=== PATIENT | female | born 1995 | race Caucasian/White ===

== ENCOUNTER → 2018-03-13 | Outpatient (CLI) | payer OTHER ==
--- NOTE | 2018-03-13 14:00 | XR ---
EXAMINATION TYPE: XR shoulder complete RT DATE OF EXAM: 03/13/2018 COMPARISON: NONE HISTORY: 22-year-old female anterior superior right shoulder pain after lifting injury. TECHNIQUE: 3 views FINDINGS: AC joint appears intact and congruent. Subacromial space is preserved. No delineation to the greater tuberosity. Visualized right hemithorax is clear. No acute fracture, subluxation, or dislocation. IMPRESSION: No acute osseous abnormality seen.
== END | disposition home or self-care (01) ==
LOC: RADXRYALE 13:07
PROVIDERS: ATTEND Internal Medicine
DX: M25.511 Pain in right shoulder (principal)

== ENCOUNTER 2018-08-21 20:01 | Emergency (ER) | payer OTHER ==
--- NOTE | 2018-08-21 21:05 | ED ---
General Adult HPI - General Chief complaint: Vaginal Bleeding Stated complaint: Poss miscarriage Time Seen by Provider: 08/21/18 20:25 Source: patient, RN notes reviewed Mode of arrival: ambulatory Limitations: no limitations - History of Present Illness Initial comments: 22-year-old female 5 weeks presents to the emergency department for a chief complaint of possible miscarriage. Patient states she began having lower pelvic pain and vaginal bleeding last night. She states since then she has blood through 2 pads. Patient denies pain at this time but states there is a pulsating feeling when she walks in her pelvis. Patient denies any concern for sexually transmitted diseases. She denies dizziness, shortness of breath.Patient has no other complaints at this time including shortness of breath, chest pain, nausea or vomiting, headache, or visual changes. - Related Data Home Medications Medication Instructions Recorded Confirmed Pnv,Calcium 72/Iron/Folic Acid 1 tab PO DAILY 02/09/16 08/21/18 [ Plus Tablet] Allergies Allergy/AdvReac Type Severity Reaction Status Date / Time latex Allergy Rash/Hives Verified 08/21/18 23:25 Penicillins AdvReac Nausea & Verified 08/21/18 23:25 Vomiting Review of Systems ROS Statement: Those systems with pertinent positive or pertinent negative responses have been documented in the HPI. ROS Other: All systems not noted in ROS Statement are negative. Past Medical History Past Medical History: No Reported History History of Any Multi-Drug Resistant Organisms: None Reported Past Surgical History: No Surgical Hx Reported Past Anesthesia/Blood Transfusion Reactions: No Reported Reaction Past Psychological History: ADD/ADHD, Anxiety, Depression Smoking Status: Never smoker Past Alcohol Use History: Occasional Past Drug Use History: None Reported - Past Family History Mother Family Medical History: Hypertension General Exam Limitations: no limitations General appearance: alert, in no apparent distress Head exam: Present: atraumatic, normocephalic, normal inspection Eye exam: Present: normal appearance, PERRL, EOMI. Absent: scleral icterus, conjunctival injection, periorbital swelling ENT exam: Present: normal exam, mucous membranes moist Neck exam: Present: normal inspection. Absent: tenderness, meningismus, lymphadenopathy Respiratory exam: Present: normal lung sounds bilaterally. Absent: respiratory distress, wheezes, rales, rhonchi, stridor Cardiovascular Exam: Present: regular rate, normal rhythm, normal heart sounds. Absent: systolic murmur, diastolic murmur, rubs, gallop, clicks GI/Abdominal exam: Present: soft, tenderness (Left lower quadrant and suprapubic tenderness without guarding), normal bowel sounds. Absent: distended , guarding, rebound, rigid Neurological exam: Present: alert, oriented X3, CN II-XII intact Psychiatric exam: Present: normal affect, normal mood Course Vital Signs 08/21/18 08/21/18 20:03 23:51 Temperature 98.6 F 98.9 F Pulse Rate 93 64 Respiratory 20 18 Rate Blood Pressure 125/66 119/67 O2 Sat by Pulse 99 99 Oximetry Medical Decision Making - Medical Decision Making 22-year-old female presents to the emergency department for a chief complaint of possible miscarriage. Patient states she is 5 weeks . She has had vaginal bleeding for the past 2 days as well as cramping. She is concerned she is having a miscarriage as she had a positive test at home. Patient does have cramping in the lower abdomen but states pain has since resolved. Ultrasound was ordered which showed normal uterus and endometrium. No adnexal mass or evidence of torsion. CBC and CMP unremarkable. HCG Quant came back as less than 2.4. Apparently patient must have had a false negative test and is likely on her menses at this time. I did offer to treat patient empirically for sexually transmitted diseases but she refused. She states she is not concerned for this. Urine was tested and patient is aware that this test was sent out. She will follow up with [facility] or primary care. She sees Dr. Catherine. She will return immediately to the emergency Department if she has any worsening symptoms. - Lab Data Result diagrams: 08/21/18 21:10 08/21/18 21:10 Lab Results 08/21/18 08/21/18 08/21/18 Range/Units 21:10 21:10 21:10 WBC 7.1 (3.8-10.6) k/uL RBC 4.42 (3.80-5.40) m/uL Hgb 12.2 (11.4-16.0) gm/dL Hct 38.0 (34.0-46.0) % MCV 86.1 (80.0-100.0) fL MCH 27.6 (25.0-35.0) pg MCHC 32.1 (31.0-37.0) g/dL RDW 13.8 (11.5-15.5) % Plt Count 180 (150-450) k/uL Neutrophils % 59 % Lymphocytes % 30 % Monocytes % 6 % Eosinophils % 3 % Basophils % 0 % Neutrophils # 4.2 (1.3-7.7) k/uL Lymphocytes # 2.2 (1.0-4.8) k/uL Monocytes # 0.4 (0-1.0) k/uL Eosinophils # 0.2 (0-0.7) k/uL Basophils # 0.0 (0-0.2) k/uL Sodium 140 (137-145) mmol/L Potassium 3.7 (3.5-5.1) mmol/L Chloride 110 H (98-107) mmol/L Carbon Dioxide 22 (22-30) mmol/L Anion Gap 8 mmol/L BUN 14 (7-17) mg/dL Creatinine 0.77 (0.52-1.04) mg/dL Est GFR (CKD-EPI)AfAm >90 (>60 ml/min/1.73 sqM) Est GFR (CKD-EPI)NonAf >90 (>60 ml/min/1.73 sqM) Glucose 96 (74-99) mg/dL Calcium 9.7 (8.4-10.2) mg/dL Total Bilirubin 0.4 (0.2-1.3) mg/dL AST 23 (14-36) U/L ALT 26 (9-52) U/L Alkaline Phosphatase 68 (38-126) U/L Total Protein 6.8 (6.3-8.2) g/dL Albumin 4.0 (3.5-5.0) g/dL HCG, Quant mIU/mL Urine Color Urine Appearance (Clear) Urine pH (5.0-8.0) Ur Specific [place] (1.001-1.035) Urine Protein (Negative) Urine Glucose (UA) (Negative) Urine Ketones (Negative) Urine Blood (Negative) Urine Nitrite (Negative) Urine Bilirubin (Negative) Urine Urobilinogen (<2.0) mg/dL Ur Leukocyte Esterase (Negative) Urine RBC (0-5) /hpf Urine WBC (0-5) /hpf Ur Squamous Epith Cells (0-4) /hpf Urine Mucus (None) /hpf Blood Type O Positive Blood Type Recheck No 10/24/18 10/24/18 Range/Units 21:10 21:43 WBC (3.8-10.6) k/uL RBC (3.80-5.40) m/uL Hgb (11.4-16.0) gm/dL Hct (34.0-46.0) % MCV (80.0-100.0) fL MCH (25.0-35.0) pg MCHC (31.0-37.0) g/dL RDW (11.5-15.5) % Plt Count (150-450) k/uL Neutrophils % % Lymphocytes % % Monocytes % % Eosinophils % % Basophils % % Neutrophils # (1.3-7.7) k/uL Lymphocytes # (1.0-4.8) k/uL Monocytes # (0-1.0) k/uL Eosinophils # (0-0.7) k/uL Basophils # (0-0.2) k/uL Sodium (137-145) mmol/L Potassium (3.5-5.1) mmol/L Chloride (98-107) mmol/L Carbon Dioxide (22-30) mmol/L Anion Gap mmol/L BUN (7-17) mg/dL Creatinine (0.52-1.04) mg/dL Est GFR (CKD-EPI)AfAm (>60 ml/min/1.73 sqM) Est GFR (CKD-EPI)NonAf (>60 ml/min/1.73 sqM) Glucose (74-99) mg/dL Calcium (8.4-10.2) mg/dL Total Bilirubin (0.2-1.3) mg/dL AST (14-36) U/L ALT (9-52) U/L Alkaline Phosphatase (38-126) U/L Total Protein (6.3-8.2) g/dL Albumin (3.5-5.0) g/dL HCG, Quant <2.4 mIU/mL Urine Color Yellow Urine Appearance Clear (Clear) Urine pH 5.0 (5.0-8.0) Ur Specific [place] 1.017 (1.001-1.035) Urine Protein Negative (Negative) Urine Glucose (UA) Negative (Negative) Urine Ketones Negative (Negative) Urine Blood Moderate H (Negative) Urine Nitrite Negative (Negative) Urine Bilirubin Negative (Negative) Urine Urobilinogen <2.0 (<2.0) mg/dL Ur Leukocyte Esterase Small H (Negative) Urine RBC 21 H (0-5) /hpf Urine WBC 19 H (0-5) /hpf Ur Squamous Epith Cells <1 (0-4) /hpf Urine Mucus Rare H (None) /hpf Blood Type Blood Type Recheck Disposition Clinical Impression: Dysmenorrhea Disposition: HOME SELF-CARE Condition: Good Instructions: Dysmenorrhea (ED) Additional Instructions: Take Motrin and Tylenol for pain. Follow-up with primary care or [facility] in 1-2 days. Return to the emergency department if you have any worsening symptoms. Is patient prescribed a controlled substance at d/c from ED?: No Referrals: Olga Cordoba MD [Primary Care Provider] - 1-2 days Time of Disposition: 23:29
[2018-08-21 21:27] LABS: Basophils % (A) 0 %; Eosinophils # (A) 0.2 k/uL (0-0.7); Eosinophils % (A) 3 %; HGB 12.2 gm/dL (11.4-16.0); Lymphocytes # (A) 2.2 k/uL (1.0-4.8); Lymphocytes % (A) 30 %; MCH 27.6 pg (25.0-35.0); MCHC 32.1 g/dL (31.0-37.0); MCV 86.1 fL (80.0-100.0); Mean Platelet Volume 7.4; Monocytes # (A) 0.4 k/uL (0-1.0); Monocytes % (A) 6 %; Neutrophils # (A) 4.2 k/uL (1.3-7.7); Neutrophils % (A) 59 %; Platelet Count 180 k/uL (150-450); RBC 4.42 m/uL (3.80-5.40); RDW 13.8 % (11.5-15.5); WBC 7.1 k/uL (3.8-10.6)
[2018-08-21 21:36] LABS: ALT 26 U/L (9-52); AST 23 U/L (14-36); Alkaline Phosphatase 68 U/L (38-126); Anion Gap 8 mmol/L; Blood Urea Nitrogen 14 mg/dL (7-17); Calcium 9.7 mg/dL (8.4-10.2); Carbon Dioxide 22 mmol/L (22-30); Chloride 110 mmol/L (98-107); Glucose 96 mg/dL (74-99); Potassium 3.7 mmol/L (3.5-5.1); Sodium 140 mmol/L (137-145); Total Bilirubin 0.4 mg/dL (0.2-1.3); Total Protein 6.8 g/dL (6.3-8.2)
[2018-08-21 22:09] LABS: Appearance,Urine Clear (Clear); Bilirubin,Urine Negative (Negative); Blood,Urine Moderate (Negative); Color,Urine Yellow; Glucose,Urine (UA) Negative (Negative); Ketones,Urine Negative (Negative); Leukocyte Esterase,Urine Small (Negative); Mucus,Urine Rare /hpf; Nitrite,Urine Negative (Negative); Protein,Urine Negative (Negative); RBC,Urine 21 /hpf (0-5); Specific Gravity,Urine 1.017 (1.001-1.035); Squamous Epithelial Cell,Urine <1 /hpf (0-4); Urobilinogen,Urine <2.0 mg/dL (<2.0); WBC,Urine 19 /hpf (0-5)
--- NOTE | 2018-08-21 22:25 | US ---
EXAMINATION TYPE: US transvaginal DATE OF EXAM: 08/21/2018 COMPARISON: NONE CLINICAL HISTORY: Pain. Pain and bleeding. TECHNIQUE: Transvaginal (TV). EXAM MEASUREMENTS: Uterus: 8.2 x 3.8 x 3.6 cm Endometrial Stripe: 0.3 cm Right Ovary: 3.5 x 1.7 x 1.7 cm Left Ovary: 2.4 x 2.0 x 2.6 cm 1. Uterus: Anteverted wnl 2. Endometrium: wnl 3. Right Ovary: Follicles seen. 4. Left Ovary: Follicles seen. Spectral, color and waveform doppler imaging shows good arterial and venous flow within the ovaries ; there is no evidence for ovarian torsion. 5. Bilateral Adnexa: wnl 6. Posterior cul-de-sac: Small amount of fluid seen. IMPRESSION: Normal uterus and endometrium. Small amount of free fluid in the cul-de-sac. No adnexal m ass. No evidence of ovarian torsion.
[2018-08-21] MEDS ORDERED: KETOROLAC 30 MG/ML 1 ML VIAL IVP STA (23:36)
[2018-08-21 23:52] VITALS: BP 119/67; PULSE 64; RESP 18; TEMP 98.9
[2018-08-23 14:40] LABS: N. gonorrhoeae,PCR Negative (Neg,Equiv); Neisseria Source Urine
[2018-08-23 15:01] LABS: C. trachomatis,PCR Negative (Neg,Equiv); Chlamydia trachomatis Source Urine
== END 2018-08-21 23:51 | disposition home or self-care (01) ==
LOC: EC 20:01
DX: N94.6 Dysmenorrhea, unspecified (principal); Z88.0 Allergy status to penicillin; Z91.040 Latex allergy status
CPT/HCPCS: 36415; 86900; 86901; 80053; 85025; 81001; 84702; 93975; 76830; 99284; 96374; J1885; 87086; 87491; 87591

== ENCOUNTER 2021-04-06 12:39 | Emergency (ER) | payer OTHER ==
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
[2021-04-06 13:21] LABS: Basophils # (A) 0.1 k/uL (0-0.2); Basophils % (A) 1 %; Eosinophils # (A) 0.1 k/uL (0-0.7); Eosinophils % (A) 1 %; HCT 40.7 % (34.0-46.0); HGB 13.9 gm/dL (11.4-16.0); Lymphocytes # (A) 1.6 k/uL (1.0-4.8); Lymphocytes % (A) 18 %; MCH 28.5 pg (25.0-35.0); MCHC 34.1 g/dL (31.0-37.0); MCV 83.5 fL (80.0-100.0); Mean Platelet Volume 7.8; Monocytes # (A) 0.4 k/uL (0-1.0); Monocytes % (A) 4 %; Neutrophils # (A) 6.6 k/uL (1.3-7.7); Neutrophils % (A) 74 %; Platelet Count 226 k/uL (150-450); RBC 4.88 m/uL (3.80-5.40); RDW 12.9 % (11.5-15.5); WBC 8.9 k/uL (3.8-10.6)
--- NOTE | 2021-04-06 14:11 | US ---
EXAMINATION TYPE: Transabdominal DATE OF EXAM: 04/06/2021 1:51 PM COMPARISON: NONE CLINICAL HISTORY: 4-6 weeks with vaginal bleeding. bleeding EXAM PERFORMED: Transvaginal (TV) and Transabdominal (TA) EXAM MEASUREMENTS: GESTATIONAL AGE / DATING Physician Established: Not yet established Dates by LMP: ( 5 weeks/5 days) EDC: 12/02/2021 Dates by First Scan: No previous this is first scan Dates by Current Scan for: No IUP seen at this t nupur MATERNAL ANATOMY Uterus: 9.7 x 5.0 x 4.5 cm Right Ovary: 2.2 x 1.8 x 1.5 cm Left Ovary: 3.0 x 2.0 x 2.0 cm Post CDS / Adnexa: free fluid in cul de sac Presence of corpus luteal cyst: left ovarian lesion with peripheral vascular flow= 1.3 x 1.5 x 1.5 cm GESTATION / SURVEY IUP: No IUP seen at this time Date of LMP: 02/25/2021, Beta HcG (if available): 12.1 Anteverted uterus. Endometrial stripe is thickened to 3 mm. No gestational sac, yolk sac, or po le seen. Small amount free fluid in pelvic cul-de-sac. Both ovaries identified. Left ovary has a 1.5 cm hyperechoic lesion with surrounding vascularity. Les ion could reflect a corpus luteal cyst. No suspicious extra ovarian adnexal lesions. IMPRESSION: Findings favor too early to visualize intrauterine but spontaneous is in differential and ectopic is not entirely excluded. Serial beta-hCG and ultrasound follow-up advised
[2021-04-06 14:55] VITALS: BP 113/75; PULSE 88; RESP 16; TEMP 98.8
== END 2021-04-06 14:55 | disposition home or self-care (01) ==
LOC: EC 12:39
DX: O20.0 Threatened abortion (principal); F12.90 Cannabis use, unspecified, uncomplicated; Z3A.01 Less than 8 weeks gestation of pregnancy
CPT/HCPCS: 36415; 76801; 76817; 84702; 85025; 86900; 86901; 99284

== ENCOUNTER → 2021-04-08 | Outpatient (CLI) | payer OTHER | END | disposition home or self-care (01) | LOC: LABWHC1 12:56 | PROVIDERS: ATTEND Obstetrics & Gynecology | DX: O20.0 Threatened abortion (principal); Z3A.00 Weeks of gestation of pregnancy not specified | CPT/HCPCS: 36415; 84702 ==

== ENCOUNTER 2021-04-28 12:22 | Emergency (ER) | payer OTHER ==
[2021-04-28 12:35] VITALS: BP 118/72; PULSE 79; RESP 20; TEMP 97.9
[2021-04-28] MEDS ORDERED: MORPHINE SULFATE 4 MG/ML SYRINGE IM STA (12:50)
--- NOTE | 2021-04-28 14:51 | CT ---
EXAMINATION TYPE: CT brain becki ferreira DATE OF EXAM: 04/28/2021 COMPARISON: None HISTORY: 25-year-old female pain, headache, dizziness CT DLP: 1246 mGycm Automated exposure control for dose reduction was used. Technique: Examination of the head was done in axial plane without intravenous contrast. Coronal and sagittal reconstructions performed. CT of the cervical spine was obtained in axial plane without intravenous injection of contrast mater ial. Coronal and sagittal reformatted images were obtained from the axial views for evaluation of f ractures, spinal alignment and canal. FINDINGS: Head: From skull base artifact along the posterior cranial fossa. Allowing for this limitation, there is no evidence of acute intracranial hemorrhage, acute ischemic changes, mass, mass-effect, or extra-axia l fluid collection. There is no effacement of cerebral sulci or basal subarachnoid cisterns. There is no hydrocephalus. There is no midline shift. Valdez-white matter distinction is preserved. Paranasal sinuses and mastoid air cells well pneumatized. Orbits and globes are intact. Cervical spine: The alignment of the cervical spine is normal on coronal and reformatted images. There is no cranial vertebral abnormality. Fracture of the cervical spine is not seen. No evident canal compromise down t o C7. Levels below this are limited due to artifact from the patient's shoulders. Some straightening of the normal cervical lordosis likely positional but could be due to muscle spasm as well. Minimal b iapical pleural parenchymal scarring. Sagittal and coronal reformatted images confirm above findings. COMBINED IMPRESSION: 1. No acute intracranial abnormality seen. 2. No acute fracture or malalignment of the cervical spine.
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
== END 2021-04-28 15:16 | disposition home or self-care (01) ==
LOC: EC 12:22
DX: S39.012A Strain of muscle, fascia and tendon of lower back, initial encounter (principal); S16.1XXA Strain of muscle, fascia and tendon at neck level, initial encounter; F41.9 Anxiety disorder, unspecified; F90.9 Attention-deficit hyperactivity disorder, unspecified type; F12.90 Cannabis use, unspecified, uncomplicated; Z88.0 Allergy status to penicillin; Z91.040 Latex allergy status; V86.95XA Unspecified occupant of 3- or 4- wheeled all-terrain vehicle (ATV) injured in nontraffic accident, initial encounter; Y92.410 Unspecified street and highway as the place of occurrence of the external cause
CPT/HCPCS: 81025; 72125; 72131; 70450; 99284; 96372; J2270

== ENCOUNTER → 2021-05-09 | Outpatient (CLI) | payer OTHER ==
[2021-05-09 18:53] LABS: Prolactin 16.1 ng/mL (2.8-29.2)
[2021-05-09 18:54] LABS: Luteinizing Hormone 5.3 mIU/mL
[2021-05-09 18:55] LABS: Estradiol 56.5 pg/mL; Follicle Stimulating Hormone 4.9 mIU/mL
[2021-05-09 18:57] LABS: HCG,Quantitative Serum <2.0 mIU/mL
== END | disposition home or self-care (01) ==
LOC: LABWHC1 10:51
PROVIDERS: ATTEND Obstetrics & Gynecology
DX: N91.2 Amenorrhea, unspecified (principal); Z13.29 Encounter for screening for other suspected endocrine disorder
CPT/HCPCS: 36415; 82670; 83001; 83002; 84146; 84439; 84443; 84479; 84702

== ENCOUNTER 2022-01-09 11:03 | Inpatient (IN) | payer OTHER ==
[2022-01-09] MEDS ORDERED: TERBUTALINE 1 MG/ML VIAL SQ PRN (11:34)
[2022-01-09] MEDS ORDERED: LIDOCAINE 1% (PF) 10 MG/ML (30 ML SDV) SQ PRN (11:34)
[2022-01-09] MEDS ORDERED: OXYTOCIN 10 UNIT/ML 1 ML VIAL IM PRN (11:34)
[2022-01-09] MEDS ORDERED: CARBOPROST TROMETHAMINE 250 MCG/ML 1 ML AMP IM PRN (11:34)
[2022-01-09] MEDS ORDERED: METHYLERGONOVINE 0.2 MG/ML 1 ML AMP IM PRN (11:34)
[2022-01-09] MEDS ORDERED: OXYTOCIN 30 UNITS/500 ML NS 30 UNIT in SALINE 1 500ML.BAG IV SCH ×2 (11:45→19:30)
[2022-01-09] MEDS ORDERED: BETAMET ACET-BETAMETH SOD PHOS 6 MG/ML MDV IM SCH (12:00)
--- NOTE | 2022-01-09 12:30 | US ---
EXAMINATION TYPE: US OB limited DATE OF EXAM: 01/09/2022 COMPARISON: NONE CLINICAL HISTORY: size, position, GORDY. EXAM PERFORMED: Transabdominal (TA) GESTATIONAL AGE / DATING Physician Established: (35 weeks/0 days) EDC: 02/13/2022 Dates by Current Scan: (34 weeks/6 days) EDC: 02/14/2022 SURVEY GORDY: 12.6 cm Normal PRESENTATION: Vertex HEART RATE: 130 bpm RHYTHM: Normal BPD: 8.8 cm 35 weeks / 6 days HC: 31.0 cm 34 weeks / 5 days AC: 28.1 cm 32 weeks / 1 days FL: 7.1 cm 36 weeks / 3 days ESTIMATED WEIGHT IN GRAMS: 2316 grams ESTIMATED WEIGHT IN LBS/OZ: 5 lbs. 2 oz. WEIGHT PERCENTAGE BASED ON ESTABLISHED DATES: 20% HC/AC: 1.10 Normal FL/AC: 25% Abnormal IMPRESSION: 1. Single viable intrauterine is noted.
[2022-01-09] MEDS: LACTATED RINGERS 1,000 ML IV SCH ×2 (12:56→19:24)
[2022-01-09 13:03] LABS: Basophils # (A) 0.1 k/uL (0-0.2); Basophils % (A) 1 %; Eosinophils # (A) 0.1 k/uL (0-0.7); Eosinophils % (A) 1 %; HCT 30.7 % (34.0-46.0); HGB 10.4 gm/dL (11.4-16.0); Lymphocytes # (A) 2.8 k/uL (1.0-4.8); Lymphocytes % (A) 22 %; MCH 28.4 pg (25.0-35.0); MCHC 33.7 g/dL (31.0-37.0); MCV 84.2 fL (80.0-100.0); Mean Platelet Volume 7.6; Monocytes # (A) 0.6 k/uL (0-1.0); Monocytes % (A) 5 %; Neutrophils % (A) 70 %; Platelet Count 283 k/uL (150-450); Poikilocytosis Slight; RBC 3.65 m/uL (3.80-5.40); RDW 13.4 % (11.5-15.5); WBC 12.8 k/uL (3.8-10.6)
--- NOTE | 2022-01-09 16:55 | P.HPOB ---
History of Present Illness H&P Date: 01/09/22 Chief Complaint: SROM 26 year old presents at 35 weeks with spontaneous rupture of membranes this morning. Her cervix is 1-2/70/-2 and she is not lety. heart tones 135 with moderate variability and reactive. Review of Systems All systems: negative Constitutional: Denies chills, Denies fever Eyes: denies blurred vision, denies pain Ears, nose, mouth and throat: Denies headache, Denies sore throat Cardiovascular: Denies chest pain, Denies shortness of breath Respiratory: Denies cough Gastrointestinal: Denies abdominal pain, Denies diarrhea, Denies nausea, Denies vomiting Genitourinary: Denies dysuria, Denies hematuria Musculoskeletal: Denies myalgias Integumentary: Denies pruritus, Denies rash Neurological: Denies numbness, Denies weakness Psychiatric: Denies anxiety, Denies depression Endocrine: Denies fatigue, Denies weight change Past Medical History Past Medical History: No Reported History History of Any Multi-Drug Resistant Organisms: None Reported Past Surgical History: No Surgical Hx Reported Past Anesthesia/Blood Transfusion Reactions: No Reported Reaction Past Psychological History: ADD/ADHD, Anxiety, Depression Smoking Status: Current some day smoker Past Alcohol Use History: Occasional Past Drug Use History: Marijuana - Past Family History Mother Family Medical History: Hypertension Medications and Allergies Home Medications Medication Instructions Recorded Confirmed Type Pdm-Ctnn-Hprmf Acid 01/09/22 History [-U Capsule (formulary)] Allergies Allergy/AdvReac Type Severity Reaction Status Date / Time latex Allergy Rash/Hives Verified 01/09/22 11:17 Penicillins AdvReac Nausea & Verified 01/09/22 11:17 Vomiting Exam Osteopathic Statement: *. No significant issues noted on an osteopathic structural exam other than those noted in the History and Physical/Consult. Vital Signs Temp Pulse Resp BP 01/09/22 12:51 97.9 F 78 16 108/59 01/09/22 11:47 97.3 F L 78 16 108/59 Intake and Output 01/09/22 01/09/22 01/09/22 06:59 14:59 22:59 Other: Weight 79.832 kg Heart: Regular rate and rhythm Lungs: Clear to auscultation bilaterally Abdomen: Soft, nontender Extremities: Negative Homans sign Results Result Diagrams: 01/09/22 12:40 Abnormal Lab Results - Last 24 Hours (Table) 01/09/22 Range/Units 12:40 WBC 12.8 H (3.8-10.6) k/uL RBC 3.65 L (3.80-5.40) m/uL Hgb 10.4 L (11.4-16.0) gm/dL Hct 30.7 L (34.0-46.0) % Neutrophils # 9.0 H (1.3-7.7) k/uL Assessment and Plan (1) 35 weeks gestation of Current Visit: Yes Status: Acute Code(s): Z3A.35 - 35 WEEKS GESTATION OF SNOMED Code(s): 20240442 (2) premature rupture of membranes Current Visit: Yes Status: Acute Code(s): O42.919 - PRETRM TENISHA ROM, UNSP TIME BETW RUPT AND ONST LABR, UNSP TRI SNOMED Code(s): 452859643 Plan: 1. antibiotics for GBS ppx 2. celestone 3. pitocin augmentation after antibiotics are in 4. anticipate normal vaginal delivery
[2022-01-09] MEDS ORDERED: BUTORPHANOL 1 MG/ML 1 ML VIAL IV PRN (18:17)
--- NOTE | 2022-01-09 19:21 | P.PROBDLV ---
Vaginal Delivery Note - . Vaginal Delivery Note: 26 year old presents at 35 weeks with spontaneous rupture of membranes last night at 2330. She presented this morning and Her cervix is 1-2/70/-2 and she is not lety. heart tones 135 with moderate variability and reactive. Due to GBS unknown status a dose of Kefzol 2 g was given at 1300. Pitocin was started a few hours later. Her cervix was completely dilated at 1903. She pushed, delivered a viable female over intact perineum at 1904. Head delivered OA, anterior shoulder delivered gentle downward guidance followed by posterior shoulder and rest of body. Nose mouth bulb suctioned cord clamped cut, infant placed mother's abdomen. Apgars 9, 9, weight pending. Placenta delivered spontaneous, intact with three-vessel cord at 1908. Vagina, cervix, perineum inspected. No lacerations noted. Estimated blood loss 150 mL. Mother and baby in stable condition.
[2022-01-09] MEDS ORDERED: diphenhydrAMINE 25 MG CAP PO PRN (19:22)
[2022-01-09] MEDS ORDERED: ZOLPIDEM 5 MG TAB PO PRN (19:22)
[2022-01-09] MEDS ORDERED: diphenhydrAMINE 50 MG CAP PO PRN (19:22)
[2022-01-09] MEDS ORDERED: diphenhydrAMINE 50 MG/ML 1 ML VIAL IVP PRN ×2 (19:22)
[2022-01-09] MEDS ORDERED: SIMETHICONE 80 MG CHEWABLE PO PRN (19:22)
[2022-01-09] MEDS ORDERED: BENZOCAINE/MENTHOL SPRAY 1 GM/SPRAY AEROSOL TOPICAL PRN (19:22)
[2022-01-09] MEDS ORDERED: HYDROCORTISONE 2.5% RECTAL CREAM 30 GM TUBE RECTAL PRN (19:22)
[2022-01-09] MEDS ORDERED: LANOLIN CREAM 5 GM TUBE TOPICAL PRN (19:22)
[2022-01-09] MEDS: SENNOSIDES-DOCUSATE SODIUM 1 EACH TAB PO SCH (20:05)
[2022-01-09] MEDS: ACETAMINOPHEN TAB 325 MG TAB PO PRN (20:05)
--- NOTE | 2022-01-09 21:06 | P.MSEPDOC ---
Presenting Problems - Arrival Data Date of Arrival on Unit: 01/09/22 Time of Arrival on Unit: 11:45 Mode of Transport: Wheelchair - Complaint OB-Reason for Admission/Chief Complaint: Rule Out PROM Comment: pt arrived c/o srom at 1130 pm and still continues to leak clear fluid. pt 35 weeks gestation Medical History - Information : 2 Para: 1 Term: 1 : 0 Abortions: Spontaneous or Elective: 0 Number of Living Children: 1 - Gestational Age Gestational Age by STALIN (wks/days): 35 Weeks and 0 Days Review of Systems - Review of Systems Constitutional: No problems Breast: No problems ENT: No problems Cardiovascular: No problems Respiratory: No problems Gastrointestinal: No problems Genitourinary: No problems Musculoskeletal: No problems Neurological: No problems Skin: No problems Vital Signs - Temperature Temperature: 97.2 F Temperature Source: Temporal Artery Scan - Pulse Right Brachial Pulse Rate: 86 Pulse Assessment Method: Pulse Oximetry - Respirations Respiratory Rate: 16 Oxygen Delivery Method: Room Air O2 Sat by Pulse Oximetry: 100 - Blood Pressure Right Arm Blood Pressure: 116/69 Blood Pressure Mean: 84 Blood Pressure Source: Automatic Cuff Medical Screen Scoring - Cervical Exam Dilation (cm): 2 Effacement (%): 70 Membranes: Ruptured - Assessment - Baby A Baseline FHR: 130 Heart Rate - NICHD Category: Category I (Normal) Physician Notification - Physician Notified Physician Notified Date: 01/09/22 Physician Notified Time: 11:30 Physician: dr mary Erazo Order Received: Yes - Notification Comment Comment: admit pt for labor . and other orders received Maternal Triage Index - Prompt/Priority 3 Prompt Priority 3: Yes Criteria Met for Priority 3: pt 35 weeks gestation that c/o leaking since 1130pm pt amnisure positive dilated 2 cm 70% effaced v/s stables Disposition - Disposition OB Disposition: Admit Discharge Date: 01/09/22 Discharge Time: 11:55 I agree with the RN Medical Screening Exam: Yes Case reviewed; plan agreed upon as documented in EMR&OBIX.: Yes Diagnosis: LABOR THIRD TRI W DELIVERY THIRD TRI, UNSP
[2022-01-10 01:04] VITALS: RESP 16
[2022-01-10] MEDS: ACETAMINOPHEN TAB 325 MG TAB PO PRN (04:23)
[2022-01-10 07:24] LABS: Basophils % (A) 0 %; Eosinophils # (A) 0.1 k/uL (0-0.7); Eosinophils % (A) 0 %; HCT 35.4 % (34.0-46.0); HGB 11.5 gm/dL (11.4-16.0); Hypochromasia Slight; Lymphocytes # (A) 2.3 k/uL (1.0-4.8); Lymphocytes % (A) 11 %; MCH 28.1 pg (25.0-35.0); MCHC 32.6 g/dL (31.0-37.0); MCV 86.4 fL (80.0-100.0); Mean Platelet Volume 7.9; Monocytes # (A) 1.1 k/uL (0-1.0); Monocytes % (A) 5 %; Neutrophils # (A) 16.6 k/uL (1.3-7.7); Neutrophils % (A) 81 %; Platelet Count 316 k/uL (150-450); RBC 4.09 m/uL (3.80-5.40); RDW 13.5 % (11.5-15.5); WBC 20.5 k/uL (3.8-10.6)
[2022-01-10] MEDS: SENNOSIDES-DOCUSATE SODIUM 1 EACH TAB PO SCH ×2 (08:13→19:40)
[2022-01-10] MEDS: IBUPROFEN 600 MG TAB PO PRN ×2 (08:13→15:12)
--- NOTE | 2022-01-10 13:41 | P.PNOBGVD ---
Subjective - Subjective Principal diagnosis: Status post vaginal delivery day #1 Interval history: Patient was seen earlier this morning and is doing well. She is working on breast-feeding. Lochia is minimal. Pain is well-controlled. She denies any dizziness or lightheadedness currently. Baby is in level I nursery Patient reports: Reports appetite normal, Reports voiding normally, Reports pain well controlled, Reports ambulating normally : doing well, other (In level I nursery) Objective - Latest Vital Signs Latest vital signs: Vital Signs Temp Pulse Resp BP Pulse Ox 01/10/22 12:00 98.1 F 64 16 111/71 01/10/22 08:00 98.2 F 89 16 105/67 01/10/22 04:00 98.4 F 82 16 121/76 99 01/10/22 00:00 98.2 F 78 16 113/72 100 01/09/22 21:16 97.6 F 100 17 137/68 98 01/09/22 21:06 97.2 F L 86 16 116/69 100 01/09/22 20:46 114 H 16 128/69 01/09/22 20:16 103 H 17 108/64 01/09/22 20:01 91 16 115/66 99 01/09/22 19:46 86 16 116/69 100 01/09/22 19:31 103 H 16 122/68 99 01/09/22 19:16 97.2 F L 101 H 17 120/62 97 Intake and Output 01/09/22 01/10/22 01/10/22 22:59 06:59 14:59 Intake Total 167.217 Output Total 485 Balance -317.783 Intake: Intake, IV Titration 167.217 Amount Oxytocin 30 Units/500 ml 167.217 Ns 30 unit In Saline 1 500ml.bag @ Per Protocol IV .Q0M [facility] Rx#:[id number] Output: Estimated Blood Loss 300 Output, Quantitative 185 Blood Loss Other: # Voids 1 1 1 - Exam Extremities: Present: normal. Absent: tenderness, edema Abdomen: Present: normal appearance, soft. Absent: distention Uterus: Present: normal, firm. Absent: tenderness - Labs Labs: Abnormal Lab Results - Last 24 Hours (Table) 01/10/22 Range/Units 06:56 WBC 20.5 H (3.8-10.6) k/uL Neutrophils # 16.6 H (1.3-7.7) k/uL Monocytes # 1.1 H (0-1.0) k/uL Assessment and Plan (1) Status post vaginal delivery Current Visit: Yes Status: Acute Code(s): [id number] - SNOMED Code(s): 876340088 Plan: Continue with care today. Anticipate discharge home tomorrow.
[2022-01-11] MEDS: IBUPROFEN 600 MG TAB PO PRN ×2 (00:24→07:54)
--- NOTE | 2022-01-11 08:48 | P.DS ---
Providers Date of admission: 01/09/22 11:33 Expected date of discharge: 01/11/22 Attending physician: Olinda Voss Primary care physician: Stated None - Discharge Diagnosis(es) (1) Status post vaginal delivery Current Visit: Yes Status: Acute Hospital Course: This is a 26-year-old female 3 para 1 at 35-0/7 weeks who presented with spontaneous rupture of membranes. She did receive 1 dose of Kefzol while in labor. She delivered vaginally a viable female on 01/09/2022 with scores of 9 at 1 minute and 9 at 5 minutes and infant weight of 4 lbs. 8 oz. Her course has been uncomplicated. Lochia has been decreasing. Her pain is been fairly well-controlled with ibuprofen. She is working on breast- feeding. Vital signs are stable. Abdomen is soft with fundus firm and nontender. Extremities show negative Homans. Impression is status post vaginal delivery day #2. Plan is to discharge home today. Routine instructions are given. She is advised to follow up in the office in 6 weeks for check. She is advised to call the office if she has any further questions or concerns prior to her appointment time. She will be given a prescription for ibuprofen and a breast pump. Procedures: Spontaneous vaginal delivery of a viable female infant on 01/09/2022 Patient Condition at Discharge: Stable Plan - Discharge Summary New Discharge Prescriptions: No Action Ygg-Ndrm-Dpjju Acid [-U Capsule (formulary)] Discharge Medication List Afv-Yvrv-Tbmfv Acid [-U Capsule (formulary)] 01/09/22 [History] Follow up Appointment(s)/Referral(s): Olinda Voss DO [Doctor of Osteopathic Medicine] - 02/21/22 11:30 am Activity/Diet/Wound Care/Special Instructions: Instructions 1. Do not begin any exercise program for 3 weeks. 2. Do not resume sexual relations for 3 weeks or longer if uncomfortable. 3. You may take tub baths or showers at any time. 4. You may use tampons if desired after 3 weeks. 5. Keep the area of episiotomy (stitches) clean and dry. 6. If you are not nursing, wear a good fitting, supportive bra during the day and limit fluid intake for at least 1 week to prevent breast engorgement. 7. Call the office, [phone], within the next week to make appointment for your 6 week checkup if it has not already been made. 8. Report any of the following occurrences to the doctor promptly: a. Heavy, excessive bleeding b. Chills, fever c. Burning or frequency of urination d. Pain or redness and breasts if nursing e. Increasing pain or swelling in episiotomy (stitches). In addition to the above instructions, the following additional should be fo llowed: 1. No heavy lifting or straining (exercising) until after 6 week checkup. 2. Keep abdominal incision clean and dry: You may wear a dressing if more comfortable. 3. Make office appointment for 10 days after going home or as instructed by her doctor. Discharge Disposition: HOME SELF-CARE
[2022-01-11 09:43] VITALS: BP 102/70; PULSE 104; TEMP 97.6
[2022-01-11] MEDS: SENNOSIDES-DOCUSATE SODIUM 1 EACH TAB PO SCH (09:45)
== END 2022-01-11 12:30 | disposition home or self-care (01) | DRG 807 ==
LOC: FBPOP 11:03 → 4FBP 11:33
PROVIDERS: ADMIT Obstetrics & Gynecology; ATTEND Obstetrics & Gynecology
PROC: 10E0XZZ Delivery of Products of Conception, External Approach (ICD-10-PCS; principal; 2022-01-09)
DX: O42.913 Preterm premature rupture of membranes, unspecified as to length of time between rupture and onset of labor, third trimester (principal); Z37.0 Single live birth; O99.334 Smoking (tobacco) complicating childbirth; O99.344 Other mental disorders complicating childbirth; F90.9 Attention-deficit hyperactivity disorder, unspecified type; F41.9 Anxiety disorder, unspecified; F32.A Depression, unspecified; F17.210 Nicotine dependence, cigarettes, uncomplicated; Z3A.35 35 weeks gestation of pregnancy; Z82.49 Family history of ischemic heart disease and other diseases of the circulatory system; Z88.0 Allergy status to penicillin; Z91.040 Latex allergy status
CPT/HCPCS: 59025; 76815; 84112; 85025; 86850; 86900; 86901; 88307; 99213

== ENCOUNTER 2022-06-29 20:30 | Emergency (ER) | payer OTHER ==
--- NOTE | 2022-06-29 20:39 | ED ---
General Adult HPI - General Stated complaint: Congestion Time Seen by Provider: 06/29/22 20:32 Source: patient, RN notes reviewed Mode of arrival: ambulatory Limitations: no limitations - History of Present Illness Initial comments: Patient is a pleasant 26-year-old female presenting to the emergency department with concerns for COVID-19 infection. Patient has had symptoms for the past day and a half. Patient has fatigue and congestion. No cough. No dyspnea. No loss of taste or smell. No nausea or vomiting. Patient significant other was diagnosed with COVID-19 today. - Related Data Home Medications Medication Instructions Recorded Confirmed Rcw-Xqil-Wzsum Acid 01/09/22 [-U Capsule (formulary)] Previous Rx's Medication Instructions Recorded Ibuprofen [Motrin] 600 mg PO Q6HR PRN #60 tab 01/11/22 Nirmatrelvir/Ritonavir [Paxlovid 2 each PO BID #20 tab 06/29/22 2X150 mg-100 mg (Eua)] Allergies Allergy/AdvReac Type Severity Reaction Status Date / Time latex Allergy Rash/Hives Verified 01/09/22 11:17 Penicillins AdvReac Nausea & Verified 01/09/22 11:17 Vomiting Review of Systems ROS Statement: Those systems with pertinent positive or pertinent negative responses have been documented in the HPI. ROS Other: All systems not noted in ROS Statement are negative. Constitutional: Denies: fever, chills Eyes: Denies: eye pain ENT: Reports: congestion. Denies: ear pain Respiratory: Denies: cough Cardiovascular: Denies: chest pain Endocrine: Reports: fatigue Gastrointestinal: Denies: abdominal pain Genitourinary: Denies: dysuria Musculoskeletal: Denies: back pain Skin: Denies: rash Neurological: Denies: weakness Past Medical History Past Medical History: No Reported History History of Any Multi-Drug Resistant Organisms: None Reported Past Surgical History: No Surgical Hx Reported Past Anesthesia/Blood Transfusion Reactions: No Reported Reaction Past Psychological History: ADD/ADHD, Anxiety, Depression Smoking Status: Current some day smoker Past Alcohol Use History: Occasional Past Drug Use History: Marijuana - Past Family History Mother Family Medical History: Hypertension General Exam Limitations: no limitations General appearance: alert Head exam: Present: normocephalic Eye exam: Present: normal appearance Neck exam: Present: normal inspection Respiratory exam: Present: normal lung sounds bilaterally Cardiovascular Exam: Present: regular rate, normal rhythm GI/Abdominal exam: Present: soft. Absent: tenderness Extremities exam: Present: normal inspection Neurological exam: Present: alert Psychiatric exam: Present: normal affect, normal mood Skin exam: Present: normal color Course Vital Signs 06/29/22 20:39 Temperature 99.2 F Pulse Rate 106 H Respiratory 16 Rate Blood Pressure 113/74 O2 Sat by Pulse 100 Oximetry Medical Decision Making - Medical Decision Making Patient reevaluated and updated - Lab Data Lab Results 06/29/22 Range/Units 20:45 Coronavirus (PCR) Detected A (Not Detectd) Disposition Clinical Impression: COVID-19 Disposition: HOME SELF-CARE Condition: Stable Instructions (If sedation given, give patient instructions): COVID-19 (Coronavirus Disease 2019) (ED) Additional Instructions: Prescription sent to pharmacy. Please follow-up with primary care physician in the next day or 2 for recheck. Xxdn-qib-dlvciky Tylenol or Motrin as needed. Kyoa-bsu-dhnunve vitamin C, vitamin D, and zinc. Prescriptions: Nirmatrelvir/Ritonavir [Paxlovid 2X150 mg-100 mg (Eua)] 2 each PO BID #20 tab Is patient prescribed a controlled substance at d/c from ED?: No Referrals: Jhonny Fernandez MD [STAFF PHYSICIAN] - 1-2 days Olga Cordoba MD [STAFF PHYSICIAN] - 1-2 days Time of Disposition: 21:09
[2022-06-29 20:43] VITALS: RESP 16
[2022-06-29 22:06] VITALS: BP 112/71; PULSE 99; TEMP 98.1
== END 2022-06-29 22:06 | disposition home or self-care (01) ==
LOC: EC 20:30
DX: U07.1 COVID-19 (principal); F17.209 Nicotine dependence, unspecified, with unspecified nicotine-induced disorders; Z91.040 Latex allergy status; Z88.0 Allergy status to penicillin
CPT/HCPCS: 87635; 99283

== ENCOUNTER 2022-08-14 13:13 | Emergency (ER) | payer OTHER ==
[2022-08-14 13:19] VITALS: RESP 20
--- NOTE | 2022-08-14 14:14 | US ---
EXAMINATION TYPE: Transabdominal DATE OF EXAM: 08/14/2022 1:52 PM COMPARISON: OB ultrasound 01/09/2022. CLINICAL HISTORY: sick and is worried about baby. No bleeding or cramping. EXAM PERFORMED: Transabdominal (TA) EXAM MEASUREMENTS: GESTATIONAL AGE / DATING Physician Established: Not yet established Dates by LMP: (12 weeks/5 days) EDC: 02/21/2023 Dates by First Scan: No previous this is first scan Dates by Current Scan for: (12 weeks/3 days) EDC: 03/02/2023 MATERNAL ANATOMY Uterus: 10.3 x 8.8 x 7.8 cm Right Ovary: 3.4 x 1.6 x 1.5 cm Left Ovary: 2.7 x 1.8 x 1.7 cm Post CDS / Adnexa: no free fluid Presence of free fluid: no Presence of corpus luteal cyst: right ovarian lesion= 1.6 x 1.4 x 1.2 cm Presence of subchorionic bleed: no GESTATION / SURVEY CRL: 4.7 cm (11 weeks/3 days) MSD: seen, not measured Yolk Sac (normal less than 6mm): not visualized Heart Rate: 172 bpm Rhythm: Normal IUP: Viable IUP Date of LMP: 05/17/2022, Beta HcG (if available): Not available at this time IMPRESSION: Single live intrauterine gestation with estimated gestational age of 12 weeks 3 days and estimated du e date of 03/02/2023.
--- NOTE | 2022-08-14 14:46 | ED ---
General Adult HPI - General Chief complaint: Upper Respiratory Infection Stated complaint: Fever,Headache, 2-3 Months Time Seen by Provider: 08/14/22 14:27 Source: patient, RN notes reviewed, old records reviewed Mode of arrival: ambulatory Limitations: no limitations - History of Present Illness Initial comments: Well-appearing 26-year-old female presents ambulatory with complaints of exposure to her 8-month-old who is RSV positive. Patient states for the past 4 days she's had persistent runny nose, congestion, nausea and low-grade fevers. She is approximately 10 weeks and concerned about the . Denies any pelvic pain. No vaginal bleeding. She is a with an 8-month-old and a 7-year-old. No other medical history. Occasionally smokes marijuana. No cigarette smoking or vaping. -: days(s) (4) Associated Symptoms: malaise, nausea/vomiting (no vomiting), other (congestion) Treatments Prior to Arrival: none - Related Data Home Medications Medication Instructions Recorded Confirmed Nds-Djbs-Kynwz Acid 01/09/22 [-U Capsule (formulary)] Previous Rx's Medication Instructions Recorded Ibuprofen [Motrin] 600 mg PO Q6HR PRN #60 tab 01/11/22 Nirmatrelvir/Ritonavir [Paxlovid 2 each PO BID #20 tab 06/29/22 2X150 mg-100 mg (Eua)] Ondansetron Odt [Zofran Odt] 4 mg PO Q8HR PRN #10 tab 08/14/22 Allergies Allergy/AdvReac Type Severity Reaction Status Date / Time latex Allergy Rash/Hives Verified 08/14/22 13:19 Penicillins AdvReac Nausea & Verified 08/14/22 13:19 Vomiting Review of Systems ROS Statement: Those systems with pertinent positive or pertinent negative responses have been documented in the HPI. ROS Other: All systems not noted in ROS Statement are negative. Past Medical History Past Medical History: No Reported History History of Any Multi-Drug Resistant Organisms: None Reported Past Surgical History: No Surgical Hx Reported Past Anesthesia/Blood Transfusion Reactions: No Reported Reaction Past Psychological History: ADD/ADHD, Anxiety, Depression Smoking Status: Current some day smoker Past Alcohol Use History: Occasional Past Drug Use History: Marijuana - Past Family History Mother Family Medical History: Hypertension General Exam Limitations: no limitations General appearance: alert, in no apparent distress Head exam: Present: atraumatic Eye exam: Absent: scleral icterus, conjunctival injection, periorbital swelling ENT exam: Present: normal oropharynx, mucous membranes moist Neck exam: Present: full ROM. Absent: tenderness, meningismus Respiratory exam: Present: normal lung sounds bilaterally. Absent: respiratory distress, wheezes, rales, rhonchi, stridor, chest wall tenderness, accessory muscle use Cardiovascular Exam: Present: regular rate GI/Abdominal exam: Present: soft Extremities exam: Present: normal capillary refill. Absent: pedal edema Neurological exam: Present: alert, oriented X3, normal gait Psychiatric exam: Present: normal affect, normal mood Skin exam: Present: warm, dry, normal color. Absent: cyanosis, diaphoretic, pallor Course Vital Signs 08/14/22 08/14/22 08/14/22 13:15 14:58 14:59 Temperature 96.4 F L 98.2 F Pulse Rate 99 92 Respiratory 20 20 20 Rate Blood Pressure 124/79 126/70 O2 Sat by Pulse 99 98 Oximetry Medical Decision Making - Medical Decision Making Patient presents after exposure to her 8-month-old daughter who is positive for RSV. She is complaining of nausea, runny nose, congestion and malaise. She is concerned about her current with RSV infection. Ultrasound was performed showing a 12 week 3 day IUP with heart tones of 172. Patient denies any vaginal bleeding or dysuria. No pelvic pain or abdominal pain. Lung sounds are clear to auscultation. Oxygen saturation is 99% on room air. Temperature 98.3. She is positive for RSV. She was encouraged to increase her fluids. Tylenol as needed for any fevers or discomfort. Continue taking vitamins. She was given a prescription for Zofran for her nausea. She states that she is going to make an appointment with Dr. Voss her [employer] soon. She was instructed to return to the emergency room if any new or concerning symptoms. Case discussed with Dr. Hernández. - Lab Data Lab Results 08/14/22 Range/Units 13:28 Influenza Type A (PCR) Not Detected (Not Detectd) Influenza Type B (PCR) Not Detected (Not Detectd) RSV (PCR) Detected A (Not Detectd) SARS-CoV-2 (PCR) Not Detected (Not Detectd) Disposition Clinical Impression: RSV infection, Disposition: HOME SELF-CARE Condition: Good Instructions (If sedation given, give patient instructions): Nausea and Vomiting in (ED), (ED), Respiratory Syncytial Virus (ED), Upper Respiratory Infection (ED) Additional Instructions: Increase your fluid intake. Tylenol as needed for any discomfort or fevers. Take Zofran as prescribed for nausea. Follow-up with your [employer] SCH[employer]ER this week. Return to emergency room with any new or concerning symptoms. Prescriptions: Ondansetron Odt [Zofran Odt] 4 mg PO Q8HR PRN #10 tab PRN Reason: Nausea Is patient prescribed a controlled substance at d/c from ED?: No Referrals: None,Stated [Primary Care Provider] - 1-2 days Oilnda Voss DO [Doctor of Osteopathic Medicine] - 1-2 days Time of Disposition: 14:46
[2022-08-14 14:59] VITALS: BP 126/70; PULSE 92; TEMP 98.2
== END 2022-08-14 14:59 | disposition home or self-care (01) ==
LOC: EC 13:13
DX: O99.511 Diseases of the respiratory system complicating pregnancy, first trimester (principal); B97.4 Respiratory syncytial virus as the cause of diseases classified elsewhere; F17.200 Nicotine dependence, unspecified, uncomplicated; Z3A.12 12 weeks gestation of pregnancy; Z20.822 Contact with and (suspected) exposure to COVID-19; Z91.040 Latex allergy status; Z88.0 Allergy status to penicillin
CPT/HCPCS: 76801; 87636; 99284

== ENCOUNTER 2023-01-31 17:32 | Outpatient (CLI) | payer OTHER ==
[2023-01-31 18:36] VITALS: BP 120/71; PULSE 103; RESP 18; TEMP 97.5
--- NOTE | 2023-01-31 21:14 | P.MSEPDOC ---
Presenting Problems - Arrival Data Date of Arrival on Unit: 01/31/23 Time of Arrival on Unit: 17:32 Mode of Transport: Ambulatory - Complaint OB-Reason for Admission/Chief Complaint: Rule Out SROM Comment: ?ROM 10 min prior to arrival. Pt reports + intercourse yesterday x2. ? urine on pad in triage today. Amnisure neg x3 today. Medical History - Information : 4 Para: 2 Term: 1 : 1 Abortions: Spontaneous or Elective: 1 Number of Living Children: 2 - Gestational Age Gestational Age by STALIN (wks/days): 35 Weeks and 5 Days - History Complications: Prior Review of Systems - Review of Systems Constitutional: No problems Breast: No problems ENT: No problems Cardiovascular: No problems Respiratory: No problems Gastrointestinal: No problems Genitourinary: No problems Musculoskeletal: No problems Neurological: No problems Skin: No problems Vital Signs - Temperature Temperature: 97.5 F Temperature Source: Temporal Artery Scan - Pulse Right Sitting Brachial Pulse Rate: 103 Pulse Assessment Method: Automatic Cuff - Respirations Respiratory Rate: 18 Oxygen Delivery Method: Room Air O2 Sat by Pulse Oximetry: 97 - Blood Pressure Right Arm Sitting Blood Pressure: 120/71 Blood Pressure Mean: 87 Blood Pressure Source: Automatic Cuff Medical Screen Scoring - Cervical Exam Dilation (cm): 1.5 Effacement (%): 60 Station: -2 - Assessment - Baby A Baseline FHR: 135 Heart Rate - NICHD Category: Category I (Normal) NST: Reactive Physician Notification - Physician Notified Physician Notified Date: 01/31/23 Physician Notified Time: 18:30 Physician: Elvi Rivera New Order Received: Yes - Notification Comment Comment: Amnisure neg x3, no pooling on spec exam, + intercourse x 2 yesterday. Dc home. Pt to return with continued or increased symptoms. Maternal Triage Index - Maternal Triage Index Presenting for scheduled procedure w/no complaint: No - Stat/Priority 1 Stat Priority 1: No - Urgent/Priority 2 Urgent Priority 2: No - Prompt/Priority 3 Prompt Priority 3: Yes Criteria Met for Priority 3: possible SROM Disposition - Disposition OB Disposition: Discharge to home Discharge Date: 01/31/23 Discharge Time: 18:31 I agree with the RN Medical Screening Exam: Yes Case reviewed; plan agreed upon as documented in EMR&OBIX.: Yes Diagnosis: FALSE LABOR BEFORE 37 COMPLETED WEEKS OF GEST, THIRD TRI
== END 2023-01-31 18:36 | disposition home or self-care (01) ==
LOC: FBPOP 17:32
PROVIDERS: ATTEND Obstetrics & Gynecology
DX: Z00.00 Encounter for general adult medical examination without abnormal findings (principal); O47.03 False labor before 37 completed weeks of gestation, third trimester; Z3A.35 35 weeks gestation of pregnancy; P07.38 Preterm newborn, gestational age 35 completed weeks; Z91.040 Latex allergy status; Z88.0 Allergy status to penicillin
CPT/HCPCS: 59025; 84112; 99213

== ENCOUNTER 2023-02-23 22:25 | Inpatient (IN) | payer OTHER ==
[2023-02-23] MEDS ORDERED: TERBUTALINE 1 MG/ML VIAL SQ PRN (22:39)
[2023-02-23] MEDS ORDERED: miSOPROStoL 200 MCG TAB PO PRN (22:39)
[2023-02-23] MEDS ORDERED: METHYLERGONOVINE 0.2 MG/ML 1 ML AMP IM PRN (22:39)
[2023-02-23] MEDS ORDERED: TRANEXAMIC ACID IN NACL,ISO-OS 1,000 MG in EMPTY BAG 1 BAG IV PRN (22:39)
[2023-02-23] MEDS ORDERED: CARBOPROST TROMETHAMINE 250 MCG/ML 1 ML AMP IM PRN (22:39)
[2023-02-23] MEDS ORDERED: OXYTOCIN 10 UNIT/ML 1 ML VIAL IM PRN (22:39)
[2023-02-23] MEDS ORDERED: LIDOCAINE 0.5% (PF) 5 MG/ML (50 ML SDV) SQ PRN (22:39)
[2023-02-23] MEDS ORDERED: LACTATED RINGERS 1,000 ML IV SCH (22:45)
[2023-02-23] MEDS ORDERED: BUTORPHANOL 2 MG/ML 1 ML VIAL IV PRN (23:10)
--- NOTE | 2023-02-23 23:31 | P.HPOB ---
History of Present Illness H&P Date: 02/23/23 Chief Complaint: Contractions This patient is a pleasant 27-year-old 4 para 2 female estimated date of confinement 03/02/2023 estimated gestational age 39 weeks who presents to labor and delivery complaints of contractions since 9:00 this evening. Patient was seen in the office earlier today by Dr. Otero she was 4 cm dilated she is now 8 cm dilated thought to be in active labor. care appears to be complicated by small for gestational age. care is per Dr. Voss. Patient began care at about 15 weeks. Besides history of delivery and small for gestational age is otherwise been uncomplicated. Review of Systems Genitourinary: Reports Menstruation: Reports amenorrhea Past Medical History Past Medical History: No Reported History Additional Past Medical History / Comment(s): 2 previous vaginal deliveries. History of Any Multi-Drug Resistant Organisms: None Reported Past Surgical History: No Surgical Hx Reported Past Anesthesia/Blood Transfusion Reactions: No Reported Reaction Past Psychological History: No Psychological Hx Reported Smoking Status: Former smoker Past Alcohol Use History: None Reported Past Drug Use History: None Reported - Past Family History Mother Family Medical History: Hypertension Medications and Allergies Home Medications Medication Instructions Recorded Confirmed Type Hnt-Bhow-Qhlig Acid 1 tab PO DAILY 01/09/22 02/23/23 History [-U Capsule (formulary)] Allergies Allergy/AdvReac Type Severity Reaction Status Date / Time latex Allergy Rash/Hives Verified 02/23/23 22:37 Penicillins AdvReac Nausea & Verified 02/23/23 22:37 Vomiting Exam Intake and Output 02/23/23 02/23/23 02/24/23 14:59 22:59 06:59 Other: Weight 83.461 kg - OBG Physical Exam Abdomen: bowel sounds normal, no diffuse tenderness, no bruit present, no guarding noted, no hepatomegaly, no splenomegaly, no mass Vulva: both: normal Vagina: normal moisture, no discharge Cervix: no lesion (Proceed centimeters dilated completely effaced -2 station.), no discharge Uterus: enlarged Results blood work shows she is O+, group B strep was negative, ultrasound done today shows estimated weight of 5 lbs. 15 oz. with an AC of less than the 2nd percentile. Assessment and Plan Assessment: This is a 27-year-old 4 para 2 female 39-0/7 weeks gestation with small for gestational age infant and active labor. Plan at this time is pain control per patient request and anticipate vaginal delivery. (1) 39 weeks gestation of Current Visit: Yes Status: Acute Code(s): Z3A.39 - 39 WEEKS GESTATION OF SNOMED Code(s): 94994575 (2) Normal labor Current Visit: Yes Status: Acute Code(s): O80 - ENCOUNTER FOR FULL-TERM UNCOMPLICATED DELIVERY; Z37.9 - OUTCOME OF DELIVERY, UNSPECIFIED SNOMED Code(s): 99309317 (3) Small for gestational age fetus Current Visit: Yes Status: Acute Code(s): UNC4738 - SNOMED Code(s): 991137150
[2023-02-23 23:42] LABS: Basophils % (A) 0 %; Eosinophils # (A) 0.1 k/uL (0-0.7); Eosinophils % (A) 1 %; Lymphocytes # (A) 2.5 k/uL (1.0-4.8); Lymphocytes % (A) 30 %; MCH 27.8 pg (25.0-35.0); MCHC 33.3 g/dL (31.0-37.0); MCV 83.5 fL (80.0-100.0); Mean Platelet Volume 8.2; Monocytes # (A) 0.5 k/uL (0-1.0); Monocytes % (A) 6 %; Neutrophils # (A) 5.1 k/uL (1.3-7.7); Neutrophils % (A) 61 %; Platelet Count 207 k/uL (150-450); RBC 4.32 m/uL (3.80-5.40); RDW 14.1 % (11.5-15.5); WBC 8.4 k/uL (3.8-10.6)
--- NOTE | 2023-02-24 01:19 | P.PROBDLV ---
Vaginal Delivery Note - . Vaginal Delivery Note: Normal spontaneous vaginal delivery viable male infant Apgars 9 and 9 delivery time is 0106 hrs. Please see dictated H&P for intimate details of this patient's admission. In brief summary this is a pleasant 27-year-old 4 para 2 female 39 weeks gestation admitted to labor and delivery with complaints of contractions found to be 6 cm dilated on admission. Patient has artificial rupture membranes at 8 cm dilated for clear fluid. Patient does get some nitrous oxide for some pain relief. Patient's labor progresses and she gets to complete. Patient pushes the head to the perineum the posterior perineum was supported. We have controlled delivery of the infant's head over the intact perineum. Mouth and nares are bulb suctioned. is straight occiput posterior presentation. There is no evidence of nuchal cord. Without maternal effort we had spontaneous delivery the anterior and posterior shoulder and rest this 's body. This is a vigorous viable male Apgars 9 and 9 delivery time is 0106 hrs. After delivery of the infant the infant is late on the mother's abdomen. After the cord was done pulsating cord is doubly clamped and cut. The placenta is then spontaneously delivered intact. Gross appearance of the placenta shows a to be circumvallate. Inspection of the perineum shows no lacerations and no repair is necessary. All counts are correct 3. There are no complications. Estimated blood loss 100 mL.
[2023-02-24] MEDS ORDERED: LANOLIN CREAM 5 GM TUBE TOPICAL PRN (01:20)
[2023-02-24] MEDS ORDERED: ZOLPIDEM 5 MG TAB PO PRN (01:20)
[2023-02-24] MEDS ORDERED: diphenhydrAMINE 25 MG CAP PO PRN (01:20)
[2023-02-24] MEDS ORDERED: HYDROCORTISONE 2.5% RECTAL CREAM 30 GM TUBE RECTAL PRN (01:20)
[2023-02-24] MEDS ORDERED: SIMETHICONE 80 MG CHEWABLE PO PRN (01:20)
[2023-02-24] MEDS ORDERED: diphenhydrAMINE 50 MG/ML 1 ML VIAL IVP PRN (01:20)
[2023-02-24] MEDS ORDERED: BENZOCAINE/MENTHOL SPRAY 1 GM/SPRAY AEROSOL TOPICAL PRN (01:20)
[2023-02-24] MEDS ORDERED: bisacodyL 10 MG SUPP RECTAL PRN (01:20)
[2023-02-24] MEDS ORDERED: OXYTOCIN 30 UNITS/500 ML NS 30 UNIT in SALINE 1 500ML.BAG IV SCH (01:30)
[2023-02-24 01:34] LABS: Amphetamine Screen,Urine Not Detected (NotDetected); Barbiturate Screen,Urine Not Detected (NotDetected); Benzodiazepines Screen,Urine Not Detected (NotDetected); Cocaine Screen,Urine Not Detected (NotDetected); Methadone Screen, Urine Not Detected (NotDetected); Opiate Screen,Urine Not Detected (NotDetected); Oxycodone Screen, Urine Not Detected (NotDetected); Phencyclidine Screen,Urine Not Detected (NotDetected); Tricyclic Antidepressant,Urine Not Detected (NotDetected); Urn Cannabinoid Scrn Not Detected (NotDetected)
[2023-02-24] MEDS: IBUPROFEN 600 MG TAB PO PRN ×3 (02:13→21:07)
[2023-02-24] MEDS: ACETAMINOPHEN TAB 325 MG TAB PO PRN ×2 (08:59→19:40)
[2023-02-24] MEDS: SENNOSIDES-DOCUSATE SODIUM 1 EACH TAB PO SCH ×2 (09:00→19:40)
--- NOTE | 2023-02-25 07:03 | P.PNOBGVD ---
Subjective - Subjective Patient reports: Reports appetite normal, Reports voiding normally, Reports pain well controlled, Reports ambulating normally : doing well Objective - Latest Vital Signs Latest vital signs: Vital Signs Temp Pulse Resp BP 02/24/23 23:26 98 02/24/23 23:00 98.7 F 70 16 118/80 02/24/23 16:00 98 F 98 18 107/64 02/24/23 12:00 98.2 F 72 16 106/67 02/24/23 08:00 97.9 F 76 18 107/63 Intake and Output 02/24/23 02/25/23 02/25/23 22:59 06:59 14:59 Intake Total 480 480 Balance 480 480 Intake: Oral 480 480 Other: # Voids 2 - Exam Lungs: bilateral: normal Chest: Normal S1, Normal S2 Extremities: Present: normal Abdomen: Present: normal appearance, soft Uterus: Present: normal, firm Assessment and Plan Assessment: day #1. Patient is resting without complaints. Vital signs are stable and she is afebrile. Uterus is firm nontender she's having normal lochia. Due to custody issues with her 2 previous children (does not have custody), patient needs to be seen by social insurance administrator prior to discharge. We have contacted them and unfortunately there unable to see her until tomorrow. They were contacted on Sunday but for some reason were unable to see her then. For this reason, patient will continue inpatient until discharge tomorrow. Plan is to continue routine care and discharge home tomorrow.. (1) 39 weeks gestation of Current Visit: Yes Status: Acute Code(s): Z3A.39 - 39 WEEKS GESTATION OF SNOMED Code(s): 14870424 (2) Normal labor Current Visit: Yes Status: Acute Code(s): O80 - ENCOUNTER FOR FULL-TERM UNCOMPLICATED DELIVERY; Z37.9 - OUTCOME OF DELIVERY, UNSPECIFIED SNOMED Code(s): 77332546 (3) Small for gestational age fetus Current Visit: Yes Status: Acute Code(s): JMR7726 - SNOMED Code(s): 311560673
[2023-02-25] MEDS: SENNOSIDES-DOCUSATE SODIUM 1 EACH TAB PO SCH ×2 (08:41→20:26)
[2023-02-25] MEDS: IBUPROFEN 600 MG TAB PO PRN ×3 (08:46→23:04)
[2023-02-25 09:03] LABS: Basophils % (A) 0 %; Eosinophils # (A) 0.2 k/uL (0-0.7); Eosinophils % (A) 2 %; HCT 36.3 % (34.0-46.0); HGB 11.9 gm/dL (11.4-16.0); Lymphocytes # (A) 2.8 k/uL (1.0-4.8); Lymphocytes % (A) 31 %; MCH 27.4 pg (25.0-35.0); MCHC 32.8 g/dL (31.0-37.0); MCV 83.4 fL (80.0-100.0); Mean Platelet Volume 8.6; Monocytes # (A) 0.5 k/uL (0-1.0); Monocytes % (A) 5 %; Neutrophils # (A) 5.4 k/uL (1.3-7.7); Neutrophils % (A) 60 %; Platelet Count 198 k/uL (150-450); RBC 4.36 m/uL (3.80-5.40); RDW 14.5 % (11.5-15.5); WBC 9.1 k/uL (3.8-10.6)
[2023-02-25] MEDS: ACETAMINOPHEN TAB 325 MG TAB PO PRN (20:27)
[2023-02-25 23:24] VITALS: TEMP 98.5
[2023-02-26] MEDS: SENNOSIDES-DOCUSATE SODIUM 1 EACH TAB PO SCH (08:11)
[2023-02-26] MEDS: IBUPROFEN 600 MG TAB PO PRN (08:11)
[2023-02-26 08:47] VITALS: BP 105/70; PULSE 93; RESP 18
--- NOTE | 2023-02-26 08:54 | P.DS ---
Providers Date of admission: 02/23/23 22:43 Expected date of discharge: 02/26/23 Attending physician: Olinda Voss Primary care physician: Stated None Hospital Course: This is a 27-year-old female 4 para 2 at 39-0/7 weeks who presented in active labor. She delivered vaginally a viable female infant on 02/24/2023 with scores of 9 at 1 minute and 9 at 5 minutes and weight of 5 lbs. 15 oz. Her course has been uncomplicated. She is attempting to breast- feed but also bottle feeding. Lochia is decreasing. Pain is fairly well controlled with ibuprofen. Vital signs are stable. Abdomen is soft with fundus firm and nontender. Extremities show negative Homans. Impression is status post vaginal delivery day #2. Plan is to discharge home today after patient is seen by social professionals due to history of no custody of her other children. She will be given up her prescription for ibuprofen. She is advised follow-up in the office in 6 weeks for check. She is advised to call the office if she has any further questions or concerns prior to her appointment time. Procedures: Spontaneous vaginal delivery of a viable male infant on 02/24/2023 Patient Condition at Discharge: Stable Plan - Discharge Summary New Discharge Prescriptions: New Ibuprofen [Motrin] 600 mg PO Q6HR PRN #60 tab PRN Reason: Mild Pain (Scale 1 To 3) Continue Maj-Ouzf-Wbrpv Acid [-U Capsule (formulary)] 1 tab PO DAILY Discharge Medication List Eyp-Rywf-Cfgyj Acid [-U Capsule (formulary)] 1 tab PO DAILY 01/09/22 [History] Ibuprofen [Motrin] 600 mg PO Q6HR PRN #60 tab 02/26/23 [Rx] Follow up Appointment(s)/Referral(s): Olinda Voss DO [Doctor of Osteopathic Medicine] - 1 Week Activity/Diet/Wound Care/Special Instructions: Instructions 1. Do not begin any exercise program for 3 weeks. 2. Do not resume sexual relations for 3 weeks or longer if uncomfortable. 3. You may take tub baths or showers at any time. 4. You may use tampons if desired after 3 weeks. 5. Keep the area of episiotomy (stitches) clean and dry. 6. If you are not nursing, wear a good fitting, supportive bra during the day and limit fluid intake for at least 1 week to prevent breast engorgement. 7. Call the office, [phone], within the next week to make appointment for your 6 week checkup if it has not already been made. 8. Report any of the following occurrences to the doctor promptly: a. Heavy, excessive bleeding b. Chills, fever c. Burning or frequency of urination d. Pain or redness and breasts if nursing e. Increasing pain or swelling in episiotomy (stitches). In addition to the above instructions, the following additional should be followed: 1. No heavy lifting or straining (exercising) until after 6 week checkup. 2. Keep abdominal incision clean and dry: You may wear a dressing if more comfortable. 3. Make office appointment for 10 days after going home or as instructed by her doctor. Discharge Disposition: HOME SELF-CARE
== END 2023-02-26 11:58 | disposition home or self-care (01) | DRG 560 ==
LOC: FBPOP 22:25 → 4FBP 22:43
PROVIDERS: ADMIT Obstetrics & Gynecology; ATTEND Obstetrics & Gynecology
PROC: 10E0XZZ Delivery of Products of Conception, External Approach (ICD-10-PCS; principal; 2023-02-24)
PROC: 10907ZC Drainage of Amniotic Fluid, Therapeutic from Products of Conception, Via Natural or Artificial Opening (ICD-10-PCS; 2023-02-24)
DX: O36.5930 Maternal care for other known or suspected poor fetal growth, third trimester, not applicable or unspecified (principal); O62.3 Precipitate labor; Z37.0 Single live birth; Z88.0 Allergy status to penicillin; Z91.040 Latex allergy status; Z87.891 Personal history of nicotine dependence
CPT/HCPCS: 59025; 80306; 84112; 85025; 86850; 86900; 86901; 99213

== ENCOUNTER 2024-02-22 09:23 | Inpatient (IN) | payer OTHER ==
[2024-02-22] MEDS: OXYTOCIN 10 UNIT/ML 1 ML VIAL IM ONE (09:30)
--- NOTE | 2024-02-22 09:46 | P.HPOB ---
History of Present Illness H&P Date: 02/22/24 Chief Complaint: term , no care 28 yo that presents to labor and delivery with complaints of regular painful contractions. Patient states she has not had care for this . She did have an ultrasound at the care center in [facility] giving her a due date anymore from the end of January to early February. Patient states she started lety around 5 AM. Patient did call EMS and was brought to OB triage, her water broke and she precipitously delivered a viable female infant. 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 History of Any Multi-Drug Resistant Organisms: None Reported Past Surgical History: No Surgical Hx Reported Past Anesthesia/Blood Transfusion Reactions: No Reported Reaction Past Psychological History: No Psychological Hx Reported Smoking Status: Former smoker Past Alcohol Use History: None Reported Past Drug Use History: None Reported - Past Family History Mother Family Medical History: Hypertension Medications and Allergies Home Medications Medication Instructions Recorded Confirmed Type Psw-Phok-Afrsx Acid 1 tab PO DAILY 01/09/22 02/23/23 History [-U Capsule (formulary)] Ibuprofen [Motrin] 600 mg PO Q6HR PRN #60 tab 02/26/23 Rx Allergies Allergy/AdvReac Type Severity Reaction Status Date / Time latex Allergy Rash/Hives Verified 02/23/23 22:37 Penicillins AdvReac Nausea & Verified 02/23/23 22:37 Vomiting Exam Osteopathic Statement: *. No significant issues noted on an osteopathic structural exam other than those noted in the History and Physical/Consult. In general this is a well-nourished well-developed female in active labor, she precipitously delivered a viable female . Umbilical cord was doubly clamped and cut cord blood was taken. Assessment and Plan (1) Term Current Visit: Yes Status: Acute Code(s): Z34.90 - ENCNTR FOR SUPRVSN OF NORMAL , UNSP, UNSP TRIMESTER SNOMED Code(s): 03508446 (2) Active labor Current Visit: Yes Status: Acute Code(s): TYF5850 - SNOMED Code(s): 786599977 (3) Spontaneous rupture of membranes Current Visit: Yes Status: Acute Code(s): OBH1232 - SNOMED Code(s): 080446852 (4) Status post vaginal delivery Narrative/Plan: 28-year-old 3 para 2-0-1-2 presented to labor and delivery with a term actively delivering. IM Pitocin was given as IV was unable to be started prior to delivery. labs will be obtained. Current Visit: No Status: Acute Code(s): LFV4926 - SNOMED Code(s): 852266568
--- NOTE | 2024-02-22 09:50 | P.PROBDLV ---
Vaginal Delivery Note - . Vaginal Delivery Note: 28-year-old 3 para 2-0-1-2 with term . No care was obtained. Patient did states she had an ultrasound done at the care center giving her a due date of 02/25-03/01 approximately. Patient began lety around 5 AM. Patient presented to triage via EMS with spontaneous rupture membranes and precipitous delivery of a viable female infant. Umbilical cord was doubly clamped and cut cord blood was taken. Placenta was delivered spontaneously intact with a three-vessel cord being noted. No vaginal lacerations were appreciated. Uterus was noted to be firm below the umbilicus, patient and infant tolerated delivery well.
[2024-02-22] MEDS ORDERED: HYDROCORTISONE 2.5% RECTAL CREAM 30 GM TUBE RECTAL PRN (09:51)
[2024-02-22] MEDS ORDERED: diphenhydrAMINE 25 MG CAP PO PRN (09:51)
[2024-02-22] MEDS ORDERED: ZOLPIDEM 5 MG TAB PO PRN (09:51)
[2024-02-22] MEDS ORDERED: LANOLIN CREAM 1 GM TUBE TOPICAL PRN (09:51)
[2024-02-22] MEDS ORDERED: BENZOCAINE/MENTHOL SPRAY 1 GM/SPRAY AEROSOL TOPICAL PRN (09:51)
[2024-02-22] MEDS ORDERED: SIMETHICONE 80 MG CHEWABLE PO PRN (09:51)
[2024-02-22] MEDS ORDERED: diphenhydrAMINE 50 MG/ML 1 ML VIAL IVP PRN ×2 (09:51)
[2024-02-22] MEDS ORDERED: diphenhydrAMINE 50 MG CAP PO PRN (09:51)
[2024-02-22] MEDS: IBUPROFEN 600 MG TAB PO SCH (11:05)
[2024-02-22 11:36] LABS: Appearance,Urine Cloudy (Clear); Bacteria,Urine Many /hpf; Bilirubin,Urine Negative (Negative); Blood,Urine Trace (Negative); Color,Urine Colorless; Glucose,Urine (UA) Negative (Negative); Ketones,Urine Negative (Negative); Leukocyte Esterase,Urine Moderate (Negative); Mucus,Urine Occasional /hpf; Nitrite,Urine Positive (Negative); Protein,Urine Trace (Negative); RBC,Urine 6 /hpf (0-5); Squamous Epithelial Cell,Urine <1 /hpf (0-4); Urobilinogen,Urine <2.0 mg/dL (<2.0); WBC,Urine 113 /hpf (0-5)
[2024-02-22 11:42] LABS: Amphetamine Screen,Urine Not Detected (NotDetected); Barbiturate Screen,Urine Not Detected (NotDetected); Benzodiazepines Screen,Urine Not Detected (NotDetected); Cocaine Screen,Urine Not Detected (NotDetected); Methadone Screen, Urine Not Detected (NotDetected); Opiate Screen,Urine Not Detected (NotDetected); Oxycodone Screen, Urine Not Detected (NotDetected); Phencyclidine Screen,Urine Not Detected (NotDetected); Tricyclic Antidepressant,Urine Not Detected (NotDetected); Urn Cannabinoid Scrn Not Detected (NotDetected)
[2024-02-22 12:00] LABS: Basophils % (A) 0 %; Eosinophils % (A) 0 %; HCT 35.8 % (34.0-46.0); HGB 11.5 gm/dL (11.4-16.0); Lymphocytes # (A) 1.6 k/uL (1.0-4.8); Lymphocytes % (A) 11 %; MCH 27.3 pg (25.0-35.0); MCHC 32.1 g/dL (31.0-37.0); Mean Platelet Volume 8.4; Monocytes # (A) 0.5 k/uL (0-1.0); Monocytes % (A) 3 %; Neutrophils # (A) 12.2 k/uL (1.3-7.7); Neutrophils % (A) 85 %; Platelet Count 233 k/uL (150-450); RBC 4.21 m/uL (3.80-5.40); RDW 14.8 % (11.5-15.5); WBC 14.4 k/uL (3.8-10.6)
[2024-02-22] MEDS ORDERED: METHYLERGONOVINE 0.2 MG/ML 1 ML AMP IM PRN (12:34)
[2024-02-22] MEDS ORDERED: miSOPROStoL 200 MCG TAB PO PRN (12:34)
[2024-02-22] MEDS ORDERED: CARBOPROST TROMETHAMINE 250 MCG/ML 1 ML AMP IM PRN (12:34)
[2024-02-22] MEDS: NITROFURANTOIN MONOHYD/M-CRYST 100 MG CAP PO SCH (13:21)
[2024-02-22 16:36] LABS: Hepatitis B Surface Antigen Nonreactive (Nonreactive)
[2024-02-22] MEDS: ACETAMINOPHEN TAB 325 MG TAB PO PRN (16:47)
[2024-02-22 20:13] LABS: HIV 2 AB Non-Reactive (Non-Reactive); HIV AB P24 Non-Reactive (Non-Reactive); HIV P24 AG Non-Reactive (Non-Reactive)
[2024-02-22] MEDS: SENNOSIDES-DOCUSATE SODIUM 1 EACH TAB PO SCH (20:20)
[2024-02-24 08:34] VITALS: BP 106/69; PULSE 93; RESP 18; TEMP 98.8
--- NOTE | 2024-02-24 11:10 | P.PNOBGVD ---
Subjective - Subjective Principal diagnosis: S/P NVD PPD #1 Interval history: Patient seen andExamined. Denies nausea, vomiting, chest pain, shortness of breath or calf pain. Patient reports: Reports appetite normal, Reports voiding normally, Reports pain well controlled, Reports ambulating normally : doing well Objective - Latest Vital Signs Latest vital signs: Vital Signs Temp Pulse Pulse Resp BP Pulse Ox 02/24/24 08:00 98.8 F 93 18 106/69 02/24/24 00:00 98.2 F 85 16 120/74 99 02/23/24 16:00 98.3 F 85 18 107/69 98 Intake and Output 02/23/24 02/24/24 02/24/24 22:59 06:59 14:59 Other: # Voids 1 2 - Exam Lungs: bilateral: normal Chest: Normal S1, Normal S2 Extremities: Present: normal Abdomen: Present: normal appearance, soft Uterus: Present: normal, firm Assessment and Plan (1) Status post normal vaginal delivery Current Visit: Yes Status: Acute Code(s): UAM4891 - SNOMED Code(s): 637519721 Plan: 1. Continue care 2. Social service consult considering she does not have custody of her other children
--- NOTE | 2024-02-24 11:11 | P.DS ---
Providers Date of admission: 02/22/24 09:26 Expected date of discharge: 02/24/24 Attending physician: Elvi Rivera Primary care physician: Stated None - Discharge Diagnosis(es) (1) Status post normal vaginal delivery Current Visit: Yes Status: Acute Hospital Course: Patient presented in active labor. She underwent a normal vaginal delivery in triage. course has been uneventful. She denies nausea, vomiting, chest pain, shortness of breath or calf pain. rn support services consult was placed and CPS did come yesterday. They want to keep the baby until tomorrow when they can determine if the adoption to her vlnnav-vp-rnx is appropriate. Plan - Discharge Summary New Discharge Prescriptions: No Action Jpw-Lrys-Ghzyk Acid [-U Capsule (formulary)] 1 tab PO DAILY Discharge Medication List Kqv-Hntz-Wzdlv Acid [-U Capsule (formulary)] 1 tab PO DAILY 01/09/22 [History] Follow up Appointment(s)/Referral(s): Eduarda Foster DO [Doctor of Osteopathic Medicine] - 6 Weeks Activity/Diet/Wound Care/Special Instructions: CPS REFERRAL: Ez ID [id number] PIN [id number] Discharge Disposition: HOME SELF-CARE
[2024-02-26 16:34] LABS: C. trachomatis,PCR Negative (Negative); N. gonorrhoeae,PCR Negative (Negative)
== END 2024-02-24 13:36 | disposition home or self-care (01) | DRG 560 ==
LOC: FBPOP 09:23 → 4FBP 09:26
PROVIDERS: ADMIT Obstetrics & Gynecology; ATTEND Obstetrics & Gynecology
PROC: 10E0XZZ Delivery of Products of Conception, External Approach (ICD-10-PCS; principal; 2024-02-22)
DX: O62.3 Precipitate labor (principal); Z3A.36 36 weeks gestation of pregnancy; Z37.0 Single live birth; Z82.49 Family history of ischemic heart disease and other diseases of the circulatory system; Z87.891 Personal history of nicotine dependence
CPT/HCPCS: 80306; 81001; 82947; 84443; 85025; 86762; 86780; 86850; 86900; 86901; 87340; 87390; 87491; 87591; 88307

== ENCOUNTER 2024-05-27 08:31 | Emergency (ER) | payer OTHER ==
[2024-05-27 08:35] VITALS: RESP 18; TEMP 98
--- NOTE | 2024-05-27 08:58 | ED ---
Skin/Abscess/FB HPI - General Chief complaint: Skin/Abscess/Foreign Body Stated complaint: Swollen cheek, pain in cheek Time Seen by Provider: 05/27/24 08:39 Source: patient, family, RN notes reviewed Mode of arrival: ambulatory Limitations: no limitations - History of Present Illness Initial comments: 28-year-old female presents emergency department with chief complaint of right sided facial pain, swelling dental pain. Patient states she has had some soreness of last days but increasing swelling overnight. Denies any fevers or chills no difficulty swallowing. No other complaints. - Related Data Home Medications Medication Instructions Recorded Confirmed Ykf-Onjz-Upfwf Acid 1 tab PO DAILY 01/09/02/22/24 [-U Capsule (formulary)] Previous Rx's Medication Instructions Recorded Ibuprofen [Motrin] 600 mg PO Q6H #30 tab 02/24/24 Nitrofurantoin Monohyd/M-Cryst 100 mg PO BID 4 Days #8 cap 02/24/24 [Macrobid] Allergies Allergy/AdvReac Type Severity Reaction Status Date / Time latex Allergy Rash/Hives Verified 05/27/24 08:35 Penicillins AdvReac Nausea & Verified 05/27/24 08:35 Vomiting Review of Systems ROS Statement: Those systems with pertinent positive or pertinent negative responses have been documented in the HPI. ROS Other: All systems not noted in ROS Statement are negative. Past Medical History Past Medical History: No Reported History Additional Past Medical History / Comment(s): 2 previous vaginal deliveries. History of Any Multi-Drug Resistant Organisms: None Reported Past Surgical History: No Surgical Hx Reported Past Anesthesia/Blood Transfusion Reactions: No Reported Reaction Past Psychological History: No Psychological Hx Reported Smoking Status: Former smoker Past Alcohol Use History: None Reported Past Drug Use History: None Reported - Past Family History Mother Family Medical History: Hypertension Additional Family Medical History / Comment(s): Lino. in Aug from complications of covid General Exam Limitations: no limitations General appearance: alert, in no apparent distress Head exam: Present: atraumatic, normocephalic, normal inspection ENT exam: Present: mucous membranes moist. Absent: normal oropharynx (Dental fracture right upper molar #1 no drainable abscess) Neck exam: Present: normal inspection. Absent: tenderness, meningismus, lymphadenopathy Respiratory exam: Present: normal lung sounds bilaterally. Absent: respiratory distress, wheezes, rales, rhonchi, stridor Cardiovascular Exam: Present: regular rate, normal rhythm, normal heart sounds. Absent: systolic murmur, diastolic murmur, rubs, gallop, clicks Course Vital Signs 05/27/24 08:33 Temperature 98 F Pulse Rate 110 H Respiratory 18 Rate Blood Pressure 118/73 O2 Sat by Pulse 99 Oximetry Medical Decision Making - Medical Decision Making Was pt. sent in by a medical professional or institution (RAVI Damon, CLIENT ADMINISTRATOR, urgent care, hospital, or care home...) When possible be specific @ -No Did you speak to anyone other than the patient for history (EMS, parent, family, police, friend...)? What history was obtained from this source @ -No Did you review nursing and triage notes (agree or disagree)? Why? @ -I reviewed and agree with nursing and triage notes Were old charts reviewed (outside hosp., previous admission, EMS record, old EKG, old radiological studies, urgent care reports/EKG's, care home records)? Report findings @ -No old charts were reviewed Differential Diagnosis (chest pain, altered mental status, abdominal pain women, abdominal pain men, vaginal bleeding, weakness, fever, dyspnea, syncope, headache, dizziness, GI bleed, back pain, seizure, CVA, palpatations, mental health, musculoskeletal)? @ -Dental abscess, dental fracture, dental pain EKG interpreted by me (3pts min.). @ -None X-rays interpreted by me (1pt min.). @ -None done CT interpreted by me (1pt min.). @ -None done U/S interpreted by me (1pt. min.). @ -None done What testing was considered but not performed or refused? (CT, X-rays, U/S, labs)? Why? @ -None What meds were considered but not given or refused? Why? @ -None Did you discuss the management of the patient with other professionals (professionals i.e. RAVI Damon, CLIENT ADMINISTRATOR, lab, RT, psych nurse, social professionals, geological specialist, teacher, chief strategy officer, senior case manager)? Give summary @ -No Was smoking cessation discussed for >3mins.? @ -No Was critical care preformed (if so, how long)? @ -No Were there social determinants of health that impacted care today? How? (Homelessness, low income, unemployed, alcoholism, drug addiction, transportation, low edu. Level, literacy, decrease access to med. care, penitentiary, rehab)? @ -No Was there de-escalation of care discussed even if they declined (Discuss DNR or withdrawal of care, Hospice)? DNR status @ -No What co-morbidities impacted this encounter? (DM, HTN, Smoking, COPD, CAD, Cancer, CVA, ARF, Chemo, Hep., AIDS, mental health diagnosis, sleep apnea, morbid obesity)? @ -None Was patient admitted / discharged? Hospital course, mention meds given and route, prescriptions, significant lab abnormalities, going to OR and other pertinent info. @ -Discharge patient has dental fracture, underlying dental infection no drainable abscess started on clindamycin as she has allergy to penicillin product patient provided analgesics. Return plans discussed advised to follow- up with dentist, oral surgeon Undiagnosed new problem with uncertain prognosis? @ -No Drug Therapy requiring intensive monitoring for toxicity (Heparin, Nitro, Insulin, Cardizem)? @ -No Were any procedures done? @ -No Diagnosis/symptom? @ -Dental infection Acute, or Chronic, or Acute on Chronic? @ -Acute Uncomplicated (without systemic symptoms) or Complicated (systemic symptoms)? @ -Uncomplicated Side effects of treatment? @ -No Exacerbation, Progression, or Severe Exacerbation? @ -No Poses a threat to life or bodily function? How? (Chest pain, [place], [place], pneumonia, PE, COPD, DKA, ARF, appy, cholecystitis, CVA, Diverticulitis, Homicidal, Suicidal, threat to staff... and all critical care pts) @ -No Disposition Clinical Impression: Dental infection Disposition: HOME SELF-CARE Condition: Stable Instructions (If sedation given, give patient instructions): Dental Abscess (ED) Additional Instructions: Please return to the Emergency Department if symptoms worsen or any other concerns. Is patient prescribed a controlled substance at d/c from ED?: No Referrals: None,Stated [Primary Care Provider] - 1-2 days Time of Disposition: 08:57
[2024-05-27] MEDS: HYDROcodone/APAP 5-325MG 1 EACH TAB PO STA (09:23)
[2024-05-27] MEDS: ACET/COD 300 MG/30 MG STARTER PACK 6 TAB BTL PO STA (09:24)
[2024-05-27 09:36] VITALS: BP 115/81; PULSE 99
== END 2024-05-27 09:35 | disposition home or self-care (01) ==
LOC: EC 08:31
DX: K04.7 Periapical abscess without sinus (principal); Z91.040 Latex allergy status; Z87.891 Personal history of nicotine dependence; Z88.0 Allergy status to penicillin
CPT/HCPCS: 99283

== ENCOUNTER 2024-10-28 17:57 | Emergency (ER) | payer OTHER ==
[2024-10-28 18:13] VITALS: BP 116/79; TEMP 98.7
--- NOTE | 2024-10-28 18:16 | ED ---
General Adult HPI - General Chief complaint: Upper Respiratory Infection Stated complaint: Cough, congestion, sore throat Time Seen by Provider: 10/28/24 18:12 Source: patient, RN notes reviewed Mode of arrival: ambulatory Limitations: no limitations - History of Present Illness Initial comments: 29-year-old female presents to the emergency department for evaluation of sore throat, nasal congestion. Symptoms ongoing for 2 days. Denies recent fever. Admits to very mild cough. Patient reports sick contacts at work. She denies any significant past medical history. - Related Data Home Medications Medication Instructions Recorded Confirmed Mag-[place]nd-[place] Acid 1 tab PO DAILY 01/09/22 02/22/24 [-U Capsule (formulary)] Previous Rx's Medication Instructions Recorded Ibuprofen [Motrin] 600 mg PO Q6H #30 tab 02/24/24 Nitrofurantoin Monohyd/M-Cryst 100 mg PO BID 4 Days #8 cap 02/24/24 [Macrobid] Ibuprofen [Motrin] 600 mg PO Q8HR PRN #20 tab 05/27/24 clindamycin HCL 300 mg PO QID #40 cap 05/27/24 Albuterol Inhaler [Ventolin Hfa 1 - 2 puff INHALATION Q6H PRN #1 10/28/24 Inhaler] each Allergies Allergy/AdvReac Type Severity Reaction Status Date / Time latex Allergy Rash/Hives Verified 10/28/24 18:09 Penicillins AdvReac Nausea & Verified 10/28/24 18:09 Vomiting Review of Systems ROS Statement: Those systems with pertinent positive or pertinent negative responses have been documented in the HPI. ROS Other: All systems not noted in ROS Statement are negative. Past Medical History Past Medical History: No Reported History Additional Past Medical History / Comment(s): 2 previous vaginal deliveries. History of Any Multi-Drug Resistant Organisms: None Reported Past Surgical History: No Surgical Hx Reported Past Anesthesia/Blood Transfusion Reactions: No Reported Reaction Past Psychological History: No Psychological Hx Reported Smoking Status: Former smoker Past Alcohol Use History: Occasional Past Drug Use History: Marijuana - Past Family History Mother Family Medical History: Hypertension Additional Family Medical History / Comment(s): Lino. in Aug from complications of covid General Exam - General Exam Comments Initial Comments: Visual Physical Exam Vital signs reviewed General: Well-appearing, nontoxic, no acute distress. Head: Normocephalic, atraumatic Eyes: PERRLA, EOMI ENT: Airway patent Chest: Nonlabored breathing Skin: No visual rash, normal skin tone Neuro: Alert and oriented 3 Musculoskeletal: No gross abnormalities Limitations: no limitations General appearance: alert, in no apparent distress Head exam: Present: atraumatic, normocephalic, normal inspection Eye exam: Present: normal appearance, PERRL, EOMI. Absent: scleral icterus, conjunctival injection, periorbital swelling ENT exam: Present: normal oropharynx (Erythematous oropharynx), mucous membranes moist Neck exam: Present: normal inspection. Absent: tenderness, meningismus, lymphadenopathy Respiratory exam: Present: normal lung sounds bilaterally. Absent: respiratory distress, wheezes, rales, rhonchi, stridor Cardiovascular Exam: Present: regular rate, normal rhythm, normal heart sounds. Absent: systolic murmur, diastolic murmur, rubs, gallop, clicks Extremities exam: Present: normal inspection, full ROM, normal capillary refill. Absent: tenderness, pedal edema, joint swelling, calf tenderness Neurological exam: Present: alert, oriented X3 Psychiatric exam: Present: normal affect, normal mood Skin exam: Present: warm, dry, intact, normal color. Absent: rash Course Vital Signs 10/28/24 10/28/24 10/28/24 18:09 19:07 21:04 Temperature 98.7 F Pulse Rate 108 H 84 Respiratory 20 18 16 Rate Blood Pressure 116/79 O2 Sat by Pulse 98 98 Oximetry Medical Decision Making - Medical Decision Making Quick note preformed and electronically signed by Carolina Miller PA-C Was pt. sent in by a medical professional or institution (RAVI Damon, ARABIC LINGUIST, urgent care, hospital, or [facility]...) When possible be specific @ -No Did you speak to anyone other than the patient for history (EMS, parent, family, police, friend...)? What history was obtained from this source @ -No Did you review nursing and triage notes (agree or disagree)? Why? @ -I reviewed and agree with nursing and triage notes Were old charts reviewed (outside hosp., previous admission, EMS record, old EKG, old radiological studies, urgent care reports/EKG's, [facility] records)? Report findings @ -No old charts were reviewed Differential Diagnosis (chest pain, altered mental status, abdominal pain women, abdominal pain men, vaginal bleeding, weakness, fever, dyspnea, syncope, headache, dizziness, GI bleed, back pain, seizure, CVA, palpatations, mental health, musculoskeletal)? @ -Strep pharyngitis, COVID, influenza, RSV, pneumonia, this is not all inclusive EKG interpreted by me (3pts min.). @ -None X-rays interpreted by me (1pt min.). @ -Chest x-ray shows no acute process CT interpreted by me (1pt min.). @ -None done U/S interpreted by me (1pt. min.). @ -None done What testing was considered but not performed or refused? (CT, X-rays, U/S, labs)? Why? @ -None What meds were considered but not given or refused? Why? @ -None Did you discuss the management of the patient with other professionals (professionals i.e. , PA, ARABIC LINGUIST, lab, RT, psych nurse, social media marketing analyst, microsoft developer, teacher, front desk officer, binder caser)? Give summary @ -No Was smoking cessation discussed for >3mins.? @ -No Was critical care preformed (if so, how long)? @ -No Were there social determinants of health that impacted care today? How? (Homelessness, low income, unemployed, alcoholism, drug addiction, transportation, low edu. Level, literacy, decrease access to med. care, fpc, rehab)? @ -No Was there de-escalation of care discussed even if they declined (Discuss DNR or withdrawal of care, Hospice)? DNR status @ -No What co-morbidities impacted this encounter? (DM, HTN, Smoking, COPD, CAD, Cancer, CVA, ARF, Chemo, Hep., AIDS, mental health diagnosis, sleep apnea, morbid obesity)? @ -None Was patient admitted / discharged? Hospital course, mention meds given and route, prescriptions, significant lab abnormalities, going to OR and other pertinent info. @ -Discharge. Patient presented emergency department for evaluation of sore throat, cough.Patient underwent testing for COVID, labs, RSV, strep pharyngitis which were negative. Chest x-ray obtained reveals no evidence of acute process. Recommended symptomatic treatment at this time including salt water gargles, Tylenol Motrin for discomfort. She is understanding agreeable with this plan. Patient stable for discharge. Case discussed with Dr. Rodriguez Undiagnosed new problem with uncertain prognosis? @ -No Drug Therapy requiring intensive monitoring for toxicity (Heparin, Nitro, Insulin, Cardizem)? @ -No Were any procedures done? @ -No Diagnosis/symptom? @ -Viral pharyngitis Acute, or Chronic, or Acute on Chronic? @ -Acute Uncomplicated (without systemic symptoms) or Complicated (systemic symptoms)? @ -uncomplicated Side effects of treatment? @ -No Exacerbation, Progression, or Severe Exacerbation? @ -No Poses a threat to life or bodily function? How? (Chest pain, [place], [place], pneumonia, PE, COPD, DKA, ARF, appy, cholecystitis, CVA, Diverticulitis, Homicidal, Suicidal, threat to staff... and all critical care pts) @ -No - Lab Data Lab Results 10/28/24 10/28/24 Range/Units 19:06 19:06 Influenza Type A (PCR) Not Detected (Not Detectd) Influenza Type B (PCR) Not Detected (Not Detectd) RSV (PCR) Not Detected (Not Detectd) SARS-CoV-2 (PCR) Not Detected (Not Detectd) Group A Strep (PCR) NOT DETECTED (Not Detectd) Disposition Clinical Impression: Viral URI Disposition: HOME SELF-CARE Condition: Stable Instructions (If sedation given, give patient instructions): Upper Respiratory Infection (ED) Additional Instructions: Please follow up with your primary care provider. Return to the emergency department for new or worsening symptoms. Prescriptions: Albuterol Inhaler [Ventolin Hfa Inhaler] 1 - 2 puff INHALATION Q6H PRN #1 each PRN Reason: Shortness Of Breath Is patient prescribed a controlled substance at d/c from ED?: No Referrals: None,Stated [Primary Care Provider] - 1-2 days
[2024-10-28] MEDS: LIDOCAINE VISCOUS 2% 15 ML CUP MUCOUS MEM ONE (19:14)
--- NOTE | 2024-10-28 19:49 | XR ---
EXAMINATION TYPE: XR chest 2V DATE OF EXAM: 10/28/2024 7:38 PM COMPARISON: None CLINICAL INDICATION: Female, 29 years old with history of cough, , TECHNIQUE: PA and lateral views FINDINGS: The cardiomediastinal silhouette, aorta, and pulmonary vasculature are within normal limits. Lungs an d pleural spaces are clear. IMPRESSION: No acute cardiopulmonary process. [facility], , 10/28/2024 7:47 PM
[2024-10-28] MEDS: dexAMETHasone 2 MG TAB PO STA (21:02)
[2024-10-28 21:05] VITALS: PULSE 84; RESP 16
== END 2024-10-28 21:05 | disposition home or self-care (01) ==
LOC: EC 17:57
DX: J06.9 Acute upper respiratory infection, unspecified (principal); B97.89 Other viral agents as the cause of diseases classified elsewhere; Z87.891 Personal history of nicotine dependence; Z88.0 Allergy status to penicillin; Z91.040 Latex allergy status
CPT/HCPCS: 87651; 87636; 71046; 99283; J8540

== ENCOUNTER 2024-12-29 22:09 | Emergency (ER) | payer OTHER ==
[2024-12-29] MEDS: ONDANSETRON 4 MG/2 ML VIAL IVP STA (23:54)
[2024-12-29] MEDS: ACETAMINOPHEN TAB 500 MG TAB PO STA (23:54)
[2024-12-29] MEDS: SODIUM CHLORIDE 0.9% 1,000 ML IV ONE (23:57)
[2024-12-30 00:16] LABS: Basophils % (A) 0 %; Eosinophils % (A) 0 %; HCT 39.6 % (34.0-46.0); HGB 12.5 gm/dL (11.4-16.0); Lymphocytes # (A) 1.2 k/uL (1.0-4.8); Lymphocytes % (A) 19 %; MCH 25.3 pg (25.0-35.0); MCHC 31.6 g/dL (31.0-37.0); MCV 80.3 fL (80.0-100.0); Mean Platelet Volume 8.5; Monocytes # (A) 0.5 k/uL (0-1.0); Monocytes % (A) 8 %; Neutrophils # (A) 4.6 k/uL (1.3-7.7); Neutrophils % (A) 72 %; Platelet Count 195 k/uL (150-450); RBC 4.93 m/uL (3.80-5.40); RDW 14.9 % (11.5-15.5); WBC 6.4 k/uL (3.8-10.6)
[2024-12-30 00:25] LABS: INR 0.9 (<1.2); Partial Thromboplastin Time 25.1 sec (22.0-30.0); Prothrombin Time 10.4 sec (10.0-12.5)
[2024-12-30 00:28] LABS: ALT 21 U/L (4-34); AST 23 U/L (14-36); African American GFR (CKD) >90 (>60 ml/min/1.73 sqM); Albumin 4.3 g/dL (3.5-5.0); Alkaline Phosphatase 85 U/L (38-126); Anion Gap 9 mmol/L; Blood Urea Nitrogen 9 mg/dL (7-17); Calcium 9.5 mg/dL (8.4-10.2); Carbon Dioxide 22 mmol/L (22-30); Chloride 105 mmol/L (98-107); Glucose 90 mg/dL (74-99); Non-African American GFR(CKD) >90 (>60 ml/min/1.73 sqM); Potassium 3.9 mmol/L (3.5-5.1); Sodium 136 mmol/L (137-145); Total Bilirubin 0.4 mg/dL (0.2-1.3); Total Protein 7.3 g/dL (6.3-8.2)
[2024-12-30 00:44] LABS: HCG,Quantitative Serum 3148.9 mIU/mL
[2024-12-30 01:01] LABS: Appearance,Urine Cloudy (Clear); Bacteria,Urine Moderate /hpf; Bilirubin,Urine Negative (Negative); Blood,Urine Large (Negative); Color,Urine Yellow; Glucose,Urine (UA) Negative (Negative); Ketones,Urine Negative (Negative); Leukocyte Esterase,Urine Negative (Negative); Mucus,Urine Occasional /hpf; Nitrite,Urine Negative (Negative); Protein,Urine Trace (Negative); RBC,Urine 8 /hpf (0-5); Specific Gravity,Urine 1.023 (1.001-1.035); Squamous Epithelial Cell,Urine 12 /hpf (0-4); Urobilinogen,Urine <2.0 mg/dL (<2.0); WBC,Urine 3 /hpf (0-5)
[2024-12-30 01:14] VITALS: RESP 20
--- NOTE | 2024-12-30 02:30 | ED ---
General Adult HPI - General Chief complaint: Vaginal Bleeding Stated complaint: 8 weeks preg,Cramps,Spotting Time Seen by Provider: 12/29/24 22:48 Source: patient Mode of arrival: ambulatory - History of Present Illness Initial comments: 29-year-old female presenting with chief complaint of vaginal spotting and cramping. Patient estimates herself to be 8 weeks , she states her LMP was "sometime in October". She is a G6, . She is having pelvic cramping and cramping in her lower back as well. No dysuria or hematuria. She is having some nausea with no vomiting. No chest pain or difficulty breathing. No upper abdominal pain. No fever. - Related Data Home Medications Medication Instructions Recorded Confirmed Pux-Eovk-Bnxpb Acid 1 tab PO DAILY 01/09/22 02/22/24 [-U Capsule (formulary)] Previous Rx's Medication Instructions Recorded Ibuprofen [Motrin] 600 mg PO Q6H #30 tab 02/24/24 Nitrofurantoin Monohyd/M-Cryst 100 mg PO BID 4 Days #8 cap 02/24/24 [Macrobid] Ibuprofen [Motrin] 600 mg PO Q8HR PRN #20 tab 05/27/24 clindamycin HCL 300 mg PO QID #40 cap 05/27/24 Albuterol Inhaler [Ventolin Hfa 1 - 2 puff INHALATION Q6H PRN #1 10/28/24 Inhaler] each Allergies Allergy/AdvReac Type Severity Reaction Status Date / Time latex Allergy Rash/Hives Verified 12/29/24 22:29 Penicillins AdvReac Nausea & Verified 12/29/24 22:29 Vomiting Review of Systems ROS Statement: Those systems with pertinent positive or pertinent negative responses have been documented in the HPI. ROS Other: All systems not noted in ROS Statement are negative. Past Medical History Past Medical History: No Reported History Additional Past Medical History / Comment(s): 2 previous vaginal deliveries. History of Any Multi-Drug Resistant Organisms: None Reported Past Surgical History: No Surgical Hx Reported Past Anesthesia/Blood Transfusion Reactions: No Reported Reaction Past Psychological History: No Psychological Hx Reported Smoking Status: Former smoker Past Alcohol Use History: Occasional Past Drug Use History: Marijuana - Past Family History Mother Family Medical History: Hypertension Additional Family Medical History / Comment(s): Lino. in Aug from complications of covid General Exam General appearance: alert, in no apparent distress Head exam: Present: atraumatic, normocephalic, normal inspection Eye exam: Present: normal appearance, EOMI Neck exam: Present: normal inspection. Absent: meningismus Respiratory exam: Present: normal lung sounds bilaterally. Absent: respiratory distress, wheezes, rales, rhonchi, stridor Cardiovascular Exam: Present: regular rate, normal rhythm, normal heart sounds. Absent: systolic murmur, diastolic murmur, rubs, gallop, clicks GI/Abdominal exam: Present: soft. Absent: distended, tenderness, guarding, rebound, rigid Neurological exam: Present: alert, oriented X3 Psychiatric exam: Present: normal affect, normal mood Skin exam: Present: warm, dry, normal color Course Vital Signs 12/29/24 12/30/24 22:24 01:07 Temperature 99 F 99.4 F Pulse Rate 102 H 97 Respiratory 18 20 Rate Blood Pressure 111/73 104/68 O2 Sat by Pulse 100 99 Oximetry Medical Decision Making - Medical Decision Making Was pt. sent in by a medical professional or institution (, PA, PHOTO MASK CLEANER, urgent care, hospital, or assisted...) When possible be specific @ -No Did you speak to anyone other than the patient for history (EMS, parent, family, police, friend...)? What history was obtained from this source @ -No Did you review nursing and triage notes (agree or disagree)? Why? @ -I reviewed and agree with nursing and triage notes Were old charts reviewed (outside hosp., previous admission, EMS record, old EKG, old radiological studies, urgent care reports/EKG's, assisted records)? Report findings @ -No old charts were reviewed Differential Diagnosis (chest pain, altered mental status, abdominal pain women, abdominal pain men, vaginal bleeding, weakness, fever, dyspnea, syncope, headach e, dizziness, GI bleed, back pain, seizure, CVA, palpatations, mental health, musculoskeletal)? @ -MDM Differential Vaginal Bleeding: Spontaneous , threatened , molar , ectopic , bloody show, incompetent cervix, abruptioplacenta, placenta previa, uterine rupture, dysfunctional uterine bleeding, hemorrhage, uterine fibroids. ... This is not meant to be an all-inclusive list EKG interpreted by me (3pts min.). @ -As above X-rays interpreted by me (1pt min.). @ -None done CT interpreted by me (1pt min.). @ -None done U/S interpreted by me (1pt. min.). @ -Ultrasound shows single intrauterine with estimated gestational age of 9 weeks 4 days. However lack of heart tone indicates demise. Recommend continued follow-up with serial beta hCG and pelvic ultrasound to confirm this diagnosis What testing was considered but not performed or refused? (CT, X-rays, U/S, labs)? Why? @ -None What meds were considered but not given or refused? Why? @ -None Did you discuss the management of the patient with other professionals (edith ogden i.e. , PA, PHOTO MASK CLEANER, lab, RT, psych nurse, perinatal social worker, ciso, teacher, surface to air weapons officer, upper caser)? Give summary @ -No Was smoking cessation discussed for >3mins.? @ -No Was critical care preformed (if so, how long)? @ -No Were there social determinants of health that impacted care today? How? (Homelessness, low income, unemployed, alcoholism, drug addiction, transportation, low edu. Level, literacy, decrease access to med. care, long term, rehab)? @ -No Was there de-escalation of care discussed even if they declined (Discuss DNR or withdrawal of care, Hospice)? DNR status @ -No What co-morbidities impacted this encounter? (DM, HTN, Smoking, COPD, CAD, Cancer, CVA, ARF, Chemo, Hep., AIDS, mental health diagnosis, sleep apnea, morbid obesity)? @ -None Was patient admitted / discharged? Hospital course, mention meds given and route, prescriptions, significant lab abnormalities, going to OR and other pertinent info. @ -29-year-old female estimated to be about 8 weeks presenting with chief complaint of spotting and cramping. History and physical examination are conducted. No leukocytosis or anemia. hCG is 3148.9. Blood type is O+, no RhoGAM indicated. Ultrasound shows intrauterine gestation estimated to be about 9 weeks and 4 days however lack of heart tones is likely indicative of demise. Patient is educated on today's findings. She is provided with an order for repeat beta-hCG in 48 hours. Instructed to follow-up with [facility]. Follow-up with PCP. Report back to ER with any new or worsening symptoms. Discussed return parameters and answered all questions. Patient conveyed verbal understanding and agreed to the plan. I discussed this case in detail with my attending Dr. Casarez Undiagnosed new problem with uncertain prognosis? @ -No Drug Therapy requiring intensive monitoring for toxicity (Heparin, Nitro, Insulin, Cardizem)? @ -No Were any procedures done? @ -No Diagnosis/symptom? @ -Threatened Acute, or Chronic, or Acute on Chronic? @ -Acute Uncomplicated (without systemic symptoms) or Complicated (systemic symptoms)? @ -Uncomplicated Side effects of treatment? @ -No Exacerbation, Progression, or Severe Exacerbation? @ -No Poses a threat to life or bodily function? How? (Chest pain, USA, [place], pneumonia, PE, COPD, DKA, ARF, appy, cholecystitis, CVA, Diverticulitis, Homicidal, Suicidal, threat to staff... and all critical care pts) @ -Low likelihood - Lab Data Result diagrams: 12/29/24 23:46 12/29/24 23:46 Lab Results 12/29/24 12/29/24 12/29/24 Range/Units 23:46 23:46 23:46 WBC 6.4 (3.8-10.6) k/uL RBC 4.93 (3.80-5.40) m/uL Hgb 12.5 (11.4-16.0) gm/dL Hct 39.6 (34.0-46.0) % MCV 80.3 (80.0-100.0) fL MCH 25.3 (25.0-35.0) pg MCHC 31.6 (31.0-37.0) g/dL RDW 14.9 (11.5-15.5) % Plt Count 195 (150-450) k/uL MPV 8.5 Neutrophils % 72 % Lymphocytes % 19 % Monocytes % 8 % Eosinophils % 0 % Basophils % 0 % Neutrophils # 4.6 (1.3-7.7) k/uL Lymphocytes # 1.2 (1.0-4.8) k/uL Monocytes # 0.5 (0-1.0) k/uL Eosinophils # 0.0 (0-0.7) k/uL Basophils # 0.0 (0-0.2) k/uL PT (10.0-12.5) sec INR (<1.2) APTT (22.0-30.0) sec Sodium 136 L (137-145) mmol/L Potassium 3.9 (3.5-5.1) mmol/L Chloride 105 (98-107) mmol/L Carbon Dioxide 22 (22-30) mmol/L Anion Gap 9 mmol/L BUN 9 (7-17) mg/dL Creatinine 0.75 (0.52-1.04) mg/dL Est GFR (CKD-EPI)AfAm >90 (>60 ml/min/1.73 sqM) Est GFR (CKD-EPI)NonAf >90 (>60 ml/min/1.73 sqM) Glucose 90 (74-99) mg/dL Calcium 9.5 (8.4-10.2) mg/dL Total Bilirubin 0.4 (0.2-1.3) mg/dL AST 23 (14-36) U/L ALT 21 (4-34) U/L Alkaline Phosphatase 85 (38-126) U/L Total Protein 7.3 (6.3-8.2) g/dL Albumin 4.3 (3.5-5.0) g/dL HCG, Quant 3148.9 mIU/mL Urine Color Yellow Urine Appearance Cloudy H (Clear) Urine pH 6.0 (5.0-8.0) Ur Specific [place] 1.023 (1.001-1.035) Urine Protein Trace H (Negative) Urine Glucose (UA) Negative (Negative) Urine Ketones Negative (Negative) Urine Blood Large H (Negative) Urine Nitrite Negative (Negative) Urine Bilirubin Negative (Negative) Urine Urobilinogen <2.0 (<2.0) mg/dL Ur Leukocyte Esterase Negative (Negative) Urine RBC 8 H (0-5) /hpf Urine WBC 3 (0-5) /hpf Ur Squamous Epith Cells 12 H (0-4) /hpf Urine Bacteria Moderate H (None) /hpf Urine Mucus Occasional H (None) /hpf Blood Type Blood Type Recheck Bld Type Recheck Status 12/29/24 12/29/24 Range/Units 23:48 23:53 WBC (3.8-10.6) k/uL RBC (3.80-5.40) m/uL Hgb (11.4-16.0) gm/dL Hct (34.0-46.0) % MCV (80.0-100.0) fL MCH (25.0-35.0) pg MCHC (31.0-37.0) g/dL RDW (11.5-15.5) % Plt Count (150-450) k/uL MPV Neutrophils % % Lymphocytes % % Monocytes % % Eosinophils % % Basophils % % Neutrophils # (1.3-7.7) k/uL Lymphocytes # (1.0-4.8) k/uL Monocytes # (0-1.0) k/uL Eosinophils # (0-0.7) k/uL Basophils # (0-0.2) k/uL PT 10.4 (10.0-12.5) sec INR 0.9 (<1.2) APTT 25.1 (22.0-30.0) sec Sodium (137-145) mmol/L Potassium (3.5-5.1) mmol/L Chloride (98-107) mmol/L Carbon Dioxide (22-30) mmol/L Anion Gap mmol/L BUN (7-17) mg/dL Creatinine (0.52-1.04) mg/dL Est GFR (CKD-EPI)AfAm (>60 ml/min/1.73 sqM) Est GFR (CKD-EPI)NonAf (>60 ml/min/1.73 sqM) Glucose (74-99) mg/dL Calcium (8.4-10.2) mg/dL Total Bilirubin (0.2-1.3) mg/dL AST (14-36) U/L ALT (4-34) U/L Alkaline Phosphatase (38-126) U/L Total Protein (6.3-8.2) g/dL Albumin (3.5-5.0) g/dL HCG, Quant mIU/mL Urine Color Urine Appearance (Clear) Urine pH (5.0-8.0) Ur Specific [place] (1.001-1.035) Urine Protein (Negative) Urine Glucose (UA) (Negative) Urine Ketones (Negative) Urine Blood (Negative) Urine Nitrite (Negative) Urine Bilirubin (Negative) Urine Urobilinogen (<2.0) mg/dL Ur Leukocyte Esterase (Negative) Urine RBC (0-5) /hpf Urine WBC (0-5) /hpf Ur Squamous Epith Cells (0-4) /hpf Urine Bacteria (None) /hpf Urine Mucus (None) /hpf Blood Type O Positive Blood Type Recheck O Pos Bld Type Recheck Status No Disposition Clinical Impression: Threatened Disposition: HOME SELF-CARE Condition: Good Instructions (If sedation given, give patient instructions): Threatened Miscarriage (ED) Additional Instructions: Follow-up with [facility]. Report back to ER with any new or worsening symptoms. Obtain repeat beta-hCG in 48 hours with your lab order you received today. Is patient prescribed a controlled substance at d/c from ED?: No Referrals: None,Stated [Primary Care Provider] - 1-2 days Shruthi Lowery MD [STAFF PHYSICIAN] - 1-2 days Elvi Rivera DO [Doctor of Osteopathic Medicine] - 1-2 days Time of Disposition: 03:31
--- NOTE | 2024-12-30 03:21 | US ---
Exam: US OB 1st TRIMESTER DATE OF EXAM: 12/30/2024 12:55 AM COMPARISON: 08/14/22 CLINICAL INDICATION: Female, 29 years old with history of pain; spotting + bleeding Pt was certain of a period on 09/23/2024, pt thinks she had period sometime in September 2024, uncertain of exact dates TECHNIQUE: Transabdominal (TA) with grayscale and color Doppler imaging including first trimester . 42 images FINDINGS: EXAM MEASUREMENTS: GESTATIONAL AGE / DATING Physician Established: Not yet established Dates by LMP: 09/23/2024 (14 weeks/0 days) EDC: 06/30/2025 Dates by First Scan: No previous this is first scan Dates by Current Scan for: (9 weeks/3 days) EDC: 08/01/2025 MATERNAL ANATOMY Uterus: 12.2x73x7.7cm Right Ovary: 3.4x1.3x1.6cm. Suboptimally visualized. Normal contour size. Left Ovary: 2.2x1.2x2.7cm. Suboptimally visualized. Normal contour size. Post CDS / Adnexa: no ff seen Presence of free fluid: n/a Presence of corpus luteal cyst: n/a Presence of subchorionic bleed: n/a GESTATION / SURVEY CRL: 26.1 millimeters corresponds to gestational age of 9 weeks/3 days Gestational Sac morphology: Normal Yolk Sac (normal less than 6mm): not seen at this time IUP: No cardiac activity noted on today's scan. Question demise. Date of LMP: 09/23/2024 Beta HcG (if available): Not available at this time Impression: Single intrauterine with estimated gestational age of 9 weeks 4 days. However, lack of heart tone indicates demise. Recommend continued follow-up with serial beta hCG and pelvic ultrasound to confirm that this diagnosis. <MYCVCSECTION> Communications: 12/30/24 03:23 Verify Receipt Verified receipt with DAVID Jang on 12/30 03:22 (-05:00)
[2024-12-30 03:41] VITALS: BP 106/67; PULSE 100; TEMP 98.5
== END 2024-12-30 03:38 | disposition home or self-care (01) ==
LOC: EC 22:09
DX: O20.0 Threatened abortion (principal); Z88.0 Allergy status to penicillin; Z91.040 Latex allergy status; Z87.891 Personal history of nicotine dependence; Z3A.08 8 weeks gestation of pregnancy
CPT/HCPCS: 86900; 86901; 80053; 85025; 85610; 85730; 84702; 99284; 96374; 96361; J2405; 36415; 76801; 81001

== ENCOUNTER 2024-12-30 16:24 | Emergency (ER) | payer OTHER ==
[2024-12-30 16:29] VITALS: RESP 18
--- NOTE | 2024-12-30 16:56 | ED ---
Female Urogenital HPI - General Chief complaint: Vaginal Bleeding Stated complaint: Abd Pain, 9 weeks preg, vag bleeding Time Seen by Provider: 12/30/24 16:42 Source: patient, EMS, RN notes reviewed Mode of arrival: EMS Limitations: no limitations - History of Present Illness Initial comments: This is a G6, 9-week female presenting with worsening vaginal bleeding. Patient was in this ER in the early hours this morning for vaginal bleeding. Had ultrasound performed indicating no heart tones and possible demise. Patient was advised follow-up with PCP/SENIOR DATASTAGE DEVELOPER for repeat quantitative hCG in 48 hours. States she could not schedule appointment since insurance only covered patients and patient no longer considered by OB office. Patient endorses associated dizziness/lightheadedness, fatigue, nausea, anorexia. Describes pain (7/10) has pressure that radiates superiorly that worsens when upright/standing. Endorses "period" Blood clots. Endorses use of Tylenol with minimal relief. Denies fever, chills, chest pain, dyspnea, vomiting, diarrhea, urinary symptoms, vaginal discharge. MD Complaint: vaginal bleeding Location: suprapubic Radiation: periumbilical Severity scale (1-10): 7 Quality: cramping Consistency: constant Worsens with: other (Upright) Patient : Yes Number of weeks : 9 Associated Symptoms: vaginal bleeding, abdominal pain, nausea/vomiting, loss of appetite - Related Data : 6 Para: 4 A: 1 Home Medications Medication Instructions Recorded Confirmed [id number] Acid 1 tab PO DAILY 01/09/22 02/22/24 [-U Capsule (formulary)] Previous Rx's Medication Instructions Recorded Ibuprofen [Motrin] 600 mg PO Q6H #30 tab 02/24/24 Nitrofurantoin Monohyd/M-Cryst 100 mg PO BID 4 Days #8 cap 02/24/24 [Macrobid] Ibuprofen [Motrin] 600 mg PO Q8HR PRN #20 tab 05/27/24 clindamycin HCL 300 mg PO QID #40 cap 05/27/24 Albuterol Inhaler [Ventolin Hfa 1 - 2 puff INHALATION Q6H PRN #1 10/28/24 Inhaler] each Allergies Allergy/AdvReac Type Severity Reaction Status Date / Time latex Allergy Rash/Hives Verified 12/30/24 16:29 Penicillins AdvReac Nausea & Verified 12/30/24 16:29 Vomiting Review of Systems ROS Statement: Those systems with pertinent positive or pertinent negative responses have been documented in the HPI. ROS Other: All systems not noted in ROS Statement are negative. Past Medical History Past Medical History: No Reported History Additional Past Medical History / Comment(s): 4 previous vaginal deliveries. History of Any Multi-Drug Resistant Organisms: None Reported Past Surgical History: No Surgical Hx Reported Past Anesthesia/Blood Transfusion Reactions: No Reported Reaction Past Psychological History: No Psychological Hx Reported Smoking Status: Former smoker Past Alcohol Use History: Occasional Past Drug Use History: Marijuana - Past Family History Mother Family Medical History: Hypertension Additional Family Medical History / Comment(s): Luekemia. in Aug from complications of covid General Exam Limitations: no limitations General appearance: alert, in no apparent distress Head exam: Present: atraumatic, normocephalic, normal inspection Eye exam: Present: normal appearance, PERRL, EOMI. Absent: scleral icterus, conjunctival injection, periorbital swelling ENT exam: Present: normal exam, mucous membranes moist Neck exam: Present: normal inspection. Absent: tenderness, meningismus, lymphadenopathy Respiratory exam: Present: normal lung sounds bilaterally. Absent: respiratory distress, wheezes, rales, rhonchi, stridor Cardiovascular Exam: Present: regular rate, normal rhythm, normal heart sounds. Absent: systolic murmur, diastolic murmur, rubs, gallop, clicks GI/Abdominal exam: Present: soft, tenderness (Positive periumbilical and epigastric tenderness without guarding), normal bowel sounds. Absent: distended, guarding, rebound, rigid Speculum exam: Present: vaginal bleeding (Small flow of active vaginal bleeding noted from mostly closed cervical os with significant amount of blood in vaginal canal and covering inner thighs) Extremities exam: Present: normal inspection, full ROM, normal capillary refill. Absent: tenderness, pedal edema, joint swelling, calf tenderness Back exam: Present: normal inspection Neurological exam: Present: alert, oriented X3, CN II-XII intact Psychiatric exam: Present: normal affect, normal mood Skin exam: Present: warm, dry, intact, normal color. Absent: rash Course Vital Signs 12/30/24 12/30/24 16:27 18:10 Temperature 98.5 F Pulse Rate 97 Respiratory 18 Rate Blood Pressure 103/67 Blood Pressure 110/68 [Right Arm Sitting] Blood Pressure 108/71 [Right Arm Standing] Blood Pressure 105/65 [Right Arm Supine] O2 Sat by Pulse 98 Oximetry Medical Decision Making - Medical Decision Making Was pt. sent in by a medical professional or institution (, RAVI, HPLC CHEMIST, urgent care, hospital, or [place] health care facility...) When possible be specific @ -No Did you speak to anyone other than the patient for history (EMS, parent, family, police, friend...)? What history was obtained from this source @ -No Did you review nursing and triage notes (agree or disagree)? Why? @ -I reviewed and agree with nursing and triage notes Were old charts reviewed (outside hosp., previous admission, EMS record, old EKG, old radiological studies, urgent care reports/EKG's, [place] health [facility] facility records)? Report findings @ -Chart and ultrasound imaging from 12/30/2024 this morning reviewed, indicating possible demise. Differential Diagnosis (chest pain, altered mental status, abdominal pain women, abdominal pain men, vaginal bleeding, weakness, fever, dyspnea, syncope, headache, dizziness, GI bleed, back pain, seizure, CVA, palpatations, mental health, musculoskeletal)? @ -Differential Vaginal Bleeding: Spontaneous , threatened , molar , ectopic , bloody show, incompetent cervix, abruptioplacenta, placenta previa, uterine rupture, dysfunctional uterine bleeding, hemorrhage, uterine fibroids, this is not meant to be an all-inclusive list. EKG interpreted by me (3pts min.). @ -Not done X-rays interpreted by me (1pt min.). @ -None done CT interpreted by me (1pt min.). @ -None done U/S interpreted by me (1pt. min.). @ -None done What testing was considered but not performed or refused? (CT, X-rays, U/S, labs)? Why? @ -None What meds were considered but not given or refused? Why? @ -None Did you discuss the management of the patient with other professionals (professionals i.e. RAVI Damon, HPLC CHEMIST, lab, RT, psych nurse, social sciences professor, rod welder, teacher, chief diversity officer, disease case manager)? Give summary @ -Spoke to Dr. Owens from [facility] who advised to have patient call his office at 8 AM tomorrow morning and speak with Jeny to schedule appointment for possible D&C. Was smoking cessation discussed for >3mins.? @ -No Was critical care preformed (if so, how long)? @ -No Were there social determinants of health that impacted care today? How? (Homelessness, low income, unemployed, alcoholism, drug addiction, transportation, low edu. Level, literacy, decrease access to med. care, retirement, rehab)? @ -No Was there de-escalation of care discussed even if they declined (Discuss DNR or withdrawal of care, Hospice)? DNR status @ -No What co-morbidities impacted this encounter? (DM, HTN, Smoking, COPD, CAD, Cancer, CVA, ARF, Chemo, Hep., AIDS, mental health diagnosis, sleep apnea, morbid obesity)? @ -None Was patient admitted / discharged? Hospital course, mention meds given and route, prescriptions, significant lab abnormalities, going to OR and other pertinent info. @ -Lab work shows hemoglobin 11.5, 1 point dropped from last night at 2346 (12.5). Quantitative hCG change from 3148 yesterday to 2472. Lab work otherwise unremarkable. Negative orthostatic vital signs. Patient provided IV normal saline and Reglan. Spoke to Dr. Owens from [facility] who advised to have patient call his office at 8 AM tomorrow morning and speak with Jeny to schedule appointment for possible D&C. Informed patient of demise and offered condolences for her loss. Provided patient p.o. Tylenol 3 and discharged with Tylenol 3 starter pack. Advised patient return to ER if experiencing worsening dizziness/bleeding prior to OB appointment tomorrow. Discussed patient with Dr. Huber. Undiagnosed new problem with uncertain prognosis? @ -No Drug Therapy requiring intensive monitoring for toxicity (Heparin, Nitro, Insulin, Cardizem)? @ -No Were any procedures done? @ -No Diagnosis/symptom? @ -Incomplete Acute, or Chronic, or Acute on Chronic? @ -Acute Uncomplicated (without systemic symptoms) or Complicated (systemic symptoms)? @ -Complicated Side effects of treatment? @ -No Exacerbation, Progression, or Severe Exacerbation? @ -No Poses a threat to life or bodily function? How? (Chest pain, USA, MA, pneumonia, PE, COPD, DKA, ARF, appy, cholecystitis, CVA, Diverticulitis, Homicidal, Suicidal, threat to staff... and all critical care pts) @ -No - Lab Data Result diagrams: 12/30/24 17:06 12/30/24 17:06 Lab Results 12/30/24 12/30/24 12/30/24 Range/Units 17:06 17:06 17:06 WBC 6.6 (3.8-10.6) k/uL RBC 4.53 (3.80-5.40) m/uL Hgb 11.5 (11.4-16.0) gm/dL Hct 36.2 (34.0-46.0) % MCV 80.0 (80.0-100.0) fL MCH 25.4 (25.0-35.0) pg MCHC 31.7 (31.0-37.0) g/dL RDW 15.2 (11.5-15.5) % Plt Count 161 (150-450) k/uL MPV 8.6 Neutrophils % 72 % Lymphocytes % 19 % Monocytes % 7 % Eosinophils % 1 % Basophils % 0 % Neutrophils # 4.7 (1.3-7.7) k/uL Lymphocytes # 1.3 (1.0-4.8) k/uL Monocytes # 0.5 (0-1.0) k/uL Eosinophils # 0.0 (0-0.7) k/uL Basophils # 0.0 (0-0.2) k/uL PT 10.5 (10.0-12.5) sec INR 0.9 (<1.2) APTT 24.4 (22.0-30.0) sec Sodium 134 L (137-145) mmol/L Potassium 3.9 (3.5-5.1) mmol/L Chloride 107 (98-107) mmol/L Carbon Dioxide 21 L (22-30) mmol/L Anion Gap 6 mmol/L BUN 7 (7-17) mg/dL Creatinine 0.71 (0.52-1.04) mg/dL Est GFR (CKD-EPI)AfAm >90 (>60 ml/min/1.73 sqM) Est GFR (CKD-EPI)NonAf >90 (>60 ml/min/1.73 sqM) Glucose 91 (74-99) mg/dL Calcium 8.8 (8.4-10.2) mg/dL Total Bilirubin 0.5 (0.2-1.3) mg/dL AST 19 (14-36) U/L ALT 17 (4-34) U/L Alkaline Phosphatase 76 (38-126) U/L Total Protein 6.4 (6.3-8.2) g/dL Albumin 3.7 (3.5-5.0) g/dL HCG, Quant 2472.6 mIU/mL Disposition Clinical Impression: Incomplete Disposition: HOME SELF-CARE Condition: Good Instructions (If sedation given, give patient instructions): Miscarriage (ED) Additional Instructions: Follow-up with Dr. Owens tomorrow for ongoing care. Call to schedule appointment at 8 AM tomorrow morning. Ask for Jeny Is patient prescribed a controlled substance at d/c from ED?: No Referrals: None,Stated [Primary Care Provider] - 1-2 days Shiva Owens MD [STAFF PHYSICIAN] - 1-2 days Time of Disposition: 17:59
[2024-12-30] MEDS: SODIUM CHLORIDE 0.9% 1,000 ML IV STA (17:02)
[2024-12-30] MEDS: METOCLOPRAMIDE 5 MG/ML 2 ML VIAL IVP STA (17:03)
[2024-12-30 17:14] LABS: Basophils % (A) 0 %; Eosinophils % (A) 1 %; HCT 36.2 % (34.0-46.0); HGB 11.5 gm/dL (11.4-16.0); Lymphocytes # (A) 1.3 k/uL (1.0-4.8); Lymphocytes % (A) 19 %; MCH 25.4 pg (25.0-35.0); MCHC 31.7 g/dL (31.0-37.0); Mean Platelet Volume 8.6; Monocytes # (A) 0.5 k/uL (0-1.0); Monocytes % (A) 7 %; Neutrophils # (A) 4.7 k/uL (1.3-7.7); Neutrophils % (A) 72 %; Platelet Count 161 k/uL (150-450); RBC 4.53 m/uL (3.80-5.40); RDW 15.2 % (11.5-15.5); WBC 6.6 k/uL (3.8-10.6)
[2024-12-30 17:26] LABS: ALT 17 U/L (4-34); AST 19 U/L (14-36); African American GFR (CKD) >90 (>60 ml/min/1.73 sqM); Albumin 3.7 g/dL (3.5-5.0); Alkaline Phosphatase 76 U/L (38-126); Anion Gap 6 mmol/L; Blood Urea Nitrogen 7 mg/dL (7-17); Calcium 8.8 mg/dL (8.4-10.2); Carbon Dioxide 21 mmol/L (22-30); Chloride 107 mmol/L (98-107); Glucose 91 mg/dL (74-99); Non-African American GFR(CKD) >90 (>60 ml/min/1.73 sqM); Potassium 3.9 mmol/L (3.5-5.1); Sodium 134 mmol/L (137-145); Total Bilirubin 0.5 mg/dL (0.2-1.3); Total Protein 6.4 g/dL (6.3-8.2)
[2024-12-30] MEDS: ONDANSETRON 4 MG/2 ML VIAL IVP STA (17:27)
[2024-12-30 17:29] LABS: INR 0.9 (<1.2); Partial Thromboplastin Time 24.4 sec (22.0-30.0); Prothrombin Time 10.5 sec (10.0-12.5)
[2024-12-30 17:42] LABS: HCG,Quantitative Serum 2472.6 mIU/mL
[2024-12-30] MEDS: Acetaminophen-Codeine 300-30mg TAB PO STA (18:37)
[2024-12-30] MEDS: ACET/COD 300 MG/30 MG STARTER PACK 6 TAB BTL PO STA (18:38)
[2024-12-30 18:42] VITALS: BP 111/70; PULSE 60; TEMP 98
== END 2024-12-30 18:43 | disposition home or self-care (01) ==
LOC: EC 16:24
DX: O03.4 Incomplete spontaneous abortion without complication (principal); Z88.0 Allergy status to penicillin; Z91.040 Latex allergy status; Z87.891 Personal history of nicotine dependence; Z3A.09 9 weeks gestation of pregnancy
CPT/HCPCS: 36415; 86900; 86901; 80053; 85025; 85610; 85730; 86850; 84702; 99284; 96374; 96361; J2765

== ENCOUNTER 2025-01-04 13:04 | Emergency (ER) | payer OTHER ==
[2025-01-04 13:24] VITALS: BP 106/73; PULSE 116; RESP 18; TEMP 99.5
[2025-01-04 14:24] LABS: Basophils % (A) 0 %; Eosinophils # (A) 0.1 k/uL (0-0.7); Eosinophils % (A) 1 %; HGB 11.7 gm/dL (11.4-16.0); Hypochromasia Slight; Lymphocytes # (A) 2.1 k/uL (1.0-4.8); Lymphocytes % (A) 25 %; MCH 25.2 pg (25.0-35.0); MCHC 31.5 g/dL (31.0-37.0); MCV 80.1 fL (80.0-100.0); Mean Platelet Volume 7.7; Monocytes # (A) 0.4 k/uL (0-1.0); Monocytes % (A) 5 %; Neutrophils # (A) 5.5 k/uL (1.3-7.7); Neutrophils % (A) 67 %; Platelet Count 253 k/uL (150-450); RBC 4.62 m/uL (3.80-5.40); RDW 14.7 % (11.5-15.5); WBC 8.1 k/uL (3.8-10.6)
[2025-01-04 14:46] LABS: ALT 13 U/L (4-34); AST 17 U/L (14-36); African American GFR (CKD) >90 (>60 ml/min/1.73 sqM); Alkaline Phosphatase 77 U/L (38-126); Amylase 37 U/L (30-110); Anion Gap 7 mmol/L; Blood Urea Nitrogen 9 mg/dL (7-17); Calcium 9.3 mg/dL (8.4-10.2); Carbon Dioxide 24 mmol/L (22-30); Chloride 106 mmol/L (98-107); Glucose 85 mg/dL (74-99); Lipase 52 U/L (23-300); Non-African American GFR(CKD) >90 (>60 ml/min/1.73 sqM); Potassium 4.3 mmol/L (3.5-5.1); Sodium 137 mmol/L (137-145); Total Bilirubin 0.5 mg/dL (0.2-1.3)
--- NOTE | 2025-01-04 14:49 | CT ---
EXAMINATION TYPE: CT soft tissue neck w con DATE OF EXAM: 01/04/2025 2:40 PM COMPARISON: None. CLINICAL INDICATION: Female, 29 years old with history of pain, swelling; PHH, RT sided earpain and s welling down rt cheek into neck TECHNIQUE: Standard enhanced CT of the neck. Axial sections with coronal and sagittal reformats were obtained. Contrast used:100ml mL of Isovue 300 with IV Contrast, (None if empty) CT DLP: 290 mGycm, Automated exposure control for dose reduction was used. FINDINGS: Brain: Visualized portions are grossly unremarkable. Orbits: Unremarkable Sinuses: Grossly unremarkable. Spaces of the neck: Clear and symmetric. Musculoskeletal: No acute osseous pathology. Lymph nodes: Multiple nonenlarged lymph nodes are seen along both anterior chains of the neck. Vascular structures: Visualized major arteries are patent without evidence of aneurysm. Thoracic Inlet/airway: Airway is patent. The lung apices are clear. Soft tissues/Thyroid: Thyroid and remainder of the soft tissues are unremarkable. Other: none. IMPRESSION No definite evidence for abscess or significant acute abnormality in the neck. [facility], , 01/04/2025 2:46 PM
--- NOTE | 2025-01-04 15:42 | ED ---
ENT HPI - General Chief complaint: ENT Stated complaint: ear pain Time Seen by Provider: 01/04/25 13:20 Source: patient, RN notes reviewed Mode of arrival: ambulatory Limitations: no limitations - History of Present Illness Initial comments: 29-year-old female presents emergency department from urgent care for evaluation of facial pain, neck swelling. Patient states symptoms for the last several days started with right ear pain now progressed to her bilateral submandibular and neck region. She has no difficulty swallow but states it is painful when she swallows. Patient reports possible fever. Patient states that she has had no cough, abdominal pain no history of mono. Patient did not have any testing in urgent care. - Related Data Home Medications Medication Instructions Recorded Confirmed [id number] Acid 1 tab PO DAILY 01/09/22 02/22/24 [-U Capsule (formulary)] Previous Rx's Medication Instructions Recorded Ibuprofen [Motrin] 600 mg PO Q6H #30 tab 02/24/24 Nitrofurantoin Monohyd/M-Cryst 100 mg PO BID 4 Days #8 cap 02/24/24 [Macrobid] Ibuprofen [Motrin] 600 mg PO Q8HR PRN #20 tab 05/27/24 clindamycin HCL 300 mg PO QID #40 cap 05/27/24 Albuterol Inhaler [Ventolin Hfa 1 - 2 puff INHALATION Q6H PRN #1 10/28/24 Inhaler] each clindamycin HCL 300 mg PO QID #40 cap 01/04/25 Allergies Allergy/AdvReac Type Severity Reaction Status Date / Time latex Allergy Rash/Hives Verified 12/30/24 16:29 Penicillins AdvReac Nausea & Verified 12/30/24 16:29 Vomiting Review of Systems ROS Statement: Those systems with pertinent positive or pertinent negative responses have been documented in the HPI. ROS Other: All systems not noted in ROS Statement are negative. Past Medical History Past Medical History: No Reported History Additional Past Medical History / Comment(s): 4 previous vaginal deliveries. History of Any Multi-Drug Resistant Organisms: None Reported Past Surgical History: No Surgical Hx Reported Past Anesthesia/Blood Transfusion Reactions: No Reported Reaction Past Psychological History: No Psychological Hx Reported Smoking Status: Never smoker Past Alcohol Use History: Occasional Past Drug Use History: Marijuana - Past Family History Mother Family Medical History: Hypertension Additional Family Medical History / Comment(s): Luekemia. in Aug from complications of covid General Exam Limitations: no limitations General appearance: alert, in no apparent distress Head exam: Present: atraumatic, normocephalic, normal inspection Eye exam: Present: normal appearance, PERRL, EOMI. Absent: scleral icterus, conjunctival injection, periorbital swelling ENT exam: Present: normal oropharynx, mucous membranes moist, other (Subm andibular swelling noted) Neck exam: Present: normal inspection, tenderness, full ROM, lymphadenopathy. Absent: meningismus Respiratory exam: Present: normal lung sounds bilaterally. Absent: respiratory distress, wheezes, rales, rhonchi, stridor Course Vital Signs 01/04/25 13:19 Temperature 99.5 F Pulse Rate 116 H Respiratory 18 Rate Blood Pressure 106/73 O2 Sat by Pulse 98 Oximetry Medical Decision Making - Medical Decision Making Was pt. sent in by a medical professional or institution (, PA, SUPER[employer] VOLUN[employer], urgent care, hospital, or intermediate...) When possible be specific @ -Urgent care Did you speak to anyone other than the patient for history (EMS, parent, family, police, friend...)? What history was obtained from this source @ -No Did you review nursing and triage notes (agree or disagree)? Why? @ -I reviewed and agree with nursing and triage notes Were old charts reviewed (outside hosp., previous admission, EMS record, old EKG, old radiological studies, urgent care reports/EKG's, intermediate records)? Report findings @ -No old charts were reviewed Differential Diagnosis (chest pain, altered mental status, abdominal pain women, abdominal pain men, vaginal bleeding, weakness, fever, dyspnea, syncope, headac he, dizziness, GI bleed, back pain, seizure, CVA, palpatations, mental health, musculoskeletal)? @ -Otalgia, strep pharyngitis, mono, sialoadenitis EKG interpreted by me (3pts min.). @None X-rays interpreted by me (1pt min.). @ -None done CT interpreted by me (1pt min.). @ -CT soft tissue neck showing multiple cervical lymph nodes no abscesses U/S interpreted by me (1pt. min.). @ -None done What testing was considered but not performed or refused? (CT, X-rays, U/S, labs)? Why? @ -None What meds were considered but not given or refused? Why? @ -None Did you discuss the management of the patient with other professionals (professionals i.e. , PA, SUPER[employer]OL[employer]TE[employer], lab, RT, psych nurse, outreach and education social worker, ballet dancer, teacher, special loan officer, porter sample case)? Give summary @ -No Was smoking cessation discussed for >3mins.? @ -No Was critical care preformed (if so, how long)? @ -No Were there social determinants of health that impacted care today? How? (Homelessness, low income, unemployed, alcoholism, drug addiction, transportation, low edu. Level, literacy, decrease access to med. care, half-way, rehab)? @ -No Was there de-escalation of care discussed even if they declined (Discuss DNR or withdrawal of care, Hospice)? DNR status @ -No What co-morbidities impacted this encounter? (DM, HTN, Smoking, COPD, CAD, Cancer, CVA, ARF, Chemo, Hep., AIDS, mental health diagnosis, sleep apnea, morbid obesity)? @ -None Was patient admitted / discharged? Hospital course, mention meds given and route, prescriptions, significant lab abnormalities, going to OR and other pertinent info. @ -Discharge patient CT is unremarkable. Patient has negative strep, negative mono patient has otalgia, multiple cervical adenopathy. Patient replaced on antibiotics with follow-up return parameters ashwin. Undiagnosed new problem with uncertain prognosis? @ -No Drug Therapy requiring intensive monitoring for toxicity (Heparin, Nitro, Insulin, Cardizem)? @ -No Were any procedures done? @ -No Diagnosis/symptom? @ -Cervical adenopathy, otalgia Acute, or Chronic, or Acute on Chronic? @ -Acute Uncomplicated (without systemic symptoms) or Complicated (systemic symptoms)? @ -Uncomplicated Side effects of treatment? @ -No Exacerbation, Progression, or Severe Exacerbation? @ -No Poses a threat to life or bodily function? How? (Chest pain, USA, PA, pneumonia, PE, COPD, DKA, ARF, appy, cholecystitis, CVA, Diverticulitis, Homicidal, Suicidal, threat to staff... and all critical care pts) @ -No - Lab Data Result diagrams: 01/04/25 13:48 01/04/25 13:48 Lab Results 0301/04/25 01/04/25 Range/Units 13:48 13:48 13:48 WBC 8.1 (3.8-10.6) k/uL RBC 4.62 (3.80-5.40) m/uL Hgb 11.7 (11.4-16.0) gm/dL Hct 37.0 (34.0-46.0) % MCV 80.1 (80.0-100.0) fL MCH 25.2 (25.0-35.0) pg MCHC 31.5 (31.0-37.0) g/dL RDW 14.7 (11.5-15.5) % Plt Count 253 (150-450) k/uL MPV 7.7 Neutrophils % 67 % Lymphocytes % 25 % Monocytes % 5 % Eosinophils % 1 % Basophils % 0 % Neutrophils # 5.5 (1.3-7.7) k/uL Lymphocytes # 2.1 (1.0-4.8) k/uL Monocytes # 0.4 (0-1.0) k/uL Eosinophils # 0.1 (0-0.7) k/uL Basophils # 0.0 (0-0.2) k/uL Hypochromasia Slight Sodium 137 (137-145) mmol/L Potassium 4.3 (3.5-5.1) mmol/L Chloride 106 (98-107) mmol/L Carbon Dioxide 24 (22-30) mmol/L Anion Gap 7 mmol/L BUN 9 (7-17) mg/dL Creatinine 0.83 (0.52-1.04) mg/dL Est GFR (CKD-EPI)AfAm >90 (>60 ml/min/1.73 sqM) Est GFR (CKD-EPI)NonAf >90 (>60 ml/min/1.73 sqM) Glucose 85 (74-99) mg/dL Calcium 9.3 (8.4-10.2) mg/dL Total Bilirubin 0.5 (0.2-1.3) mg/dL AST 17 (14-36) U/L ALT 13 (4-34) U/L Alkaline Phosphatase 77 (38-126) U/L Total Protein 7.0 (6.3-8.2) g/dL Albumin 4.0 (3.5-5.0) g/dL Amylase 37 (30-110) U/L Lipase 52 (23-300) U/L Heterophile Antibody Negative (Negative) Group A Strep (PCR) (Not Detectd) 01/04/25 Range/Units 15:30 WBC (3.8-10.6) k/uL RBC (3.80-5.40) m/uL Hgb (11.4-16.0) gm/dL Hct (34.0-46.0) % MCV (80.0-100.0) fL MCH (25.0-35.0) pg MCHC (31.0-37.0) g/dL RDW (11.5-15.5) % Plt Count (150-450) k/uL MPV Neutrophils % % Lymphocytes % % Monocytes % % Eosinophils % % Basophils % % Neutrophils # (1.3-7.7) k/uL Lymphocytes # (1.0-4.8) k/uL Monocytes # (0-1.0) k/uL Eosinophils # (0-0.7) k/uL Basophils # (0-0.2) k/uL Hypochromasia Sodium (137-145) mmol/L Potassium (3.5-5.1) mmol/L Chloride (98-107) mmol/L Carbon Dioxide (22-30) mmol/L Anion Gap mmol/L BUN (7-17) mg/dL Creatinine (0.52-1.04) mg/dL Est GFR (CKD-EPI)AfAm (>60 ml/min/1.73 sqM) Est GFR (CKD-EPI)NonAf (>60 ml/min/1.73 sqM) Glucose (74-99) mg/dL Calcium (8.4-10.2) mg/dL Total Bilirubin (0.2-1.3) mg/dL AST (14-36) U/L ALT (4-34) U/L Alkaline Phosphatase (38-126) U/L Total Protein (6.3-8.2) g/dL Albumin (3.5-5.0) g/dL Amylase (30-110) U/L Lipase (23-300) U/L Heterophile Antibody (Negative) Group A Strep (PCR) NOT DETECTED (Not Detectd) Disposition Clinical Impression: Otalgia, Cervical lymphadenopathy, Sialoadenitis Disposition: HOME SELF-CARE Condition: Stable Instructions (If sedation given, give patient instructions): Lymphadenopathy (ED) Additional Instructions: Please return to the Emergency Department if symptoms worsen or any other concerns. Prescriptions: clindamycin HCL 300 mg PO QID #40 cap Is patient prescribed a controlled substance at d/c from ED?: No Referrals: None,Stated [Primary Care Provider] - 1-2 days Time of Disposition: 16:33
[2025-01-04] MEDS: CLINDAMYCIN 150 MG CAP PO STA (17:09)
[2025-01-04] MEDS: KETOROLAC 15 MG/ML 1 ML VIAL IVP STA (17:10)
[2025-01-04] MEDS: ACET/COD 300 MG/30 MG STARTER PACK 6 TAB BTL PO STA (17:10)
== END 2025-01-04 17:40 | disposition home or self-care (01) ==
LOC: EC 13:04
DX: H92.01 Otalgia, right ear (principal); K11.20 Sialoadenitis, unspecified; R59.1 Generalized enlarged lymph nodes
CPT/HCPCS: 36415; 87651; 80053; 82150; 83690; 85025; 86308; 70491; 99283; 96374; J1885; Q9967

== ENCOUNTER → 2025-01-14 | Outpatient (CLI) | payer OTHER | END | disposition home or self-care (01) | LOC: LABWHC1 10:50 | PROVIDERS: ATTEND Obstetrics & Gynecology | DX: O03.9 Complete or unspecified spontaneous abortion without complication (principal) | CPT/HCPCS: 36415; 84702 ==